=== PATIENT | female | born 1985 | race Caucasian/White ===

== ENCOUNTER → 2018-10-11 13:28 | Outpatient (CLI) | payer MEDICAID, SELFPAY ==
--- NOTE | 2018-10-11 13:36 | XR_ITS ---
XR chest 2V HISTORY: ITS.REASON: COUGH ORDERING PHYSICIAN: Patricia Cole PATIENT AGE: 32 years COMPARISON: None available FINDINGS: The cardiomediastinal silhouette and pulmonary vascularity are within normal limits. The lungs are clear without infiltrates, suspicious nodules, or pleural effusions. No acute bony abnormalities. IMPRESSION: Negative chest, no acute finding
== END ==
PROVIDERS: PCP Nurse Practitioner Family; Visit Provider Nurse Practitioner Family
DX: R07.89 Other chest pain (principal); R05 Cough
CPT/HCPCS: 71046

== ENCOUNTER → 2018-10-18 10:31 | Outpatient (CLI) | payer MEDICAID, SELFPAY ==
[2018-10-18 10:37] LABS: Adenovirus,PCR Not Detected (NotDetected); Bordetella Pertussis Not Detected (NotDetected); Chlamydophila Pneumoniae, PCR Not Detected (NotDetected); Coronavirus 229E Not Detected (NotDetected); Coronavirus NL63 Not Detected (NotDetected); Coronavirus OC43 Not Detected (NotDetected); Coronovirus HKU1,PCR Not Detected (NotDetected); Human Metapneumovirus Not Detected (NotDetected); Influenza A, PCR Not Detected (NotDetected); Influenza AH1, 2009 Not Detected (NotDetected); Influenza AH1, PCR Not Detected (NotDetected); Influenza AH3,PCR Not Detected (NotDetected); Influenza B, PCR Not Detected (NotDetected); Mycoplasma Pneumoniae, PCR Not Detected (NotDetected); Parainfluenza 1, PCR Not Detected (NotDetected); Parainfluenza 2, PCR Not Detected (NotDetected); Parainfluenza 3, PCR Not Detected (NotDetected); Parainfluenza 4, PCR Not Detected (NotDetected); Respiratory Syncytial Virus Not Detected (NotDetected); Rhinovirus/Enterovirus Not Detected (NotDetected)
--- NOTE | 2018-10-18 10:39 | XR_ITS ---
XR chest 2V HISTORY: ITS.REASON: COUGH,FEVER ORDERING PHYSICIAN: Patricia Cole PATIENT AGE: 33 years COMPARISON: 10/11/2018 FINDINGS: The cardiomediastinal silhouette and pulmonary vascularity are within normal limits. The lungs are clear without infiltrates, suspicious nodules, or pleural effusions. There is minimal upper thoracic curvature convex left No acute bony abnormalities. IMPRESSION: No change with no acute finding
== END ==
PROVIDERS: PCP Nurse Practitioner Family; Visit Provider Nurse Practitioner Family
DX: R05 Cough (principal); R50.9 Fever, unspecified
CPT/HCPCS: 71046; 87486; 87581; 87633; 87798

== ENCOUNTER → 2022-04-26 15:46 | Outpatient (CLI) | payer BC, SELFPAY ==
[2022-04-26 17:13] LABS: HCG,Quantitative 2018 mIU/ml (0-5.42)
== END ==
PROVIDERS: PCP Nurse Practitioner Family; Visit Provider Obstetrics & Gynecology
DX: Z34.90 Encounter for supervision of normal pregnancy, unspecified, unspecified trimester (principal)
CPT/HCPCS: 36415; 84702

== ENCOUNTER → 2022-04-28 15:44 | Outpatient (CLI) | payer BC, SELFPAY ==
[2022-04-28 17:53] LABS: HCG,Quantitative 4192 mIU/ml (0-5.42)
== END ==
PROVIDERS: PCP Family Medicine; Visit Provider Obstetrics & Gynecology
DX: Z34.90 Encounter for supervision of normal pregnancy, unspecified, unspecified trimester (principal)
CPT/HCPCS: 36415; 84702

== ENCOUNTER → 2022-05-10 12:51 | Outpatient (CLI) | payer BC, SELFPAY ==
--- NOTE | 2022-05-10 12:51 | US_ITS ---
FINAL REPORT CLINICAL HISTORY: Dates; early 6 w 4 d FINDINGS: PELVIC ULTRASOUND A single living intrauterine is present. Cardiac activity is confirmed at 126 beats per minute. Estimated gestational age is 6 weeks 4 days based on a crown-rump length of 6.68 mm. Otherwise evaluation of the uterus and cervix was not performed. Appropriate amount of fluid is present. The right ovary measures 3.4 x 2.3 x 3.5 cm. There is a 2.3 cm right ovarian cyst, likely corpus luteum. The left ovary measures 2.8 x 1.4 x 2.2 cm. Normal flow is identified to the ovaries. IMPRESSION: Single living intrauterine with an estimated gestational age of 6 weeks 4 days. Reviewed, Interpreted and Dictated by Olena Sinha MD Transcribed by Vin Goss Authenticated and [facility]
== END ==
PROVIDERS: PCP Family Medicine; Visit Provider Obstetrics & Gynecology
DX: Z34.90 Encounter for supervision of normal pregnancy, unspecified, unspecified trimester (principal)
CPT/HCPCS: 76801

== ENCOUNTER → 2022-05-18 12:54 | Outpatient (CLI) | payer BC, SELFPAY ==
[2022-05-18 13:19] LABS: Basophils # 0.1 K/mm3 (0-0.2); Basophils % 1.3 % (0.1-2.0); Eosinophils # 0.1 K/mm3 (0.0-0.4); Hematocrit 41.6 % (37.0-47.0); Hemoglobin 13.5 g/dL (12.2-16.2); Lymphocytes % 26.5 % (10-50); Mean Corpuscular HGB Conc 32.5 g/dL (31.8-35.4); Mean Corpuscular Hemoglobin 32.6 pg (27.0-31.2); Mean Corpuscular Volume 100.3 fl (81-99); Mean Platelet Volume 8.8 fl (7.4-10.4); Monocytes # 0.3 K/mm3 (0.1-1.0); Monocytes % 3.3 % (1.7-9.3); Neutrophils # 5.2 K/mm3 (1.8-7.8); Neutrophils % 67.9 % (37.0-80.0); Platelet Count 206 K/mm3 (142-424); Red Blood Count 4.15 M/mm3 (4.20-5.40); Red Cell Distribution Width 12.8 % (11.5-17.5); White Blood Count 7.6 K/mm3 (4.8-10.8)
[2022-05-19 06:14] LABS: HIV Screen 4th Generation wRfx Non Reactive (Non Reactive); Hepatitis B Surface Antigen Negative (Negative); Hepatitis C Antibody 0.1 s/co ratio (0.0-0.9)
[2022-05-19 11:25] LABS: Rapid Plasma Reagin Ab Titer Non Reactive (NonRea<1:1)
[2022-05-20 23:13] LABS: Neisseria gonorrhoeae, NAA Negative (Negative)
== END ==
PROVIDERS: PCP Family Medicine; Visit Provider Obstetrics & Gynecology
DX: Z34.90 Encounter for supervision of normal pregnancy, unspecified, unspecified trimester (principal)
CPT/HCPCS: 36415; 85025; 86592; 86703; 86762; 86850; 87340; 87380; 87491; 87591; G0432

== ENCOUNTER → 2022-08-12 13:16 | Outpatient (CLI) | payer BC, SELFPAY ==
--- NOTE | 2022-08-12 13:26 | US_ITS ---
FINAL REPORT CLINICAL HISTORY: 20 week anatomy scan FINDINGS: There is a single live intrauterine gestation. Presentation is variable but was breech at the end of the exam. The cervix is closed and measures 4.52 cm. Placenta is anterior, grade 1. movement is noted. Cardiac activity was noted with heart rate measured at 150 beats per minute. Three-vessel cord with satisfactory umbilical cord insertion. Four-chamber heart is noted. brain and ventricles are unremarkable. Chest and diaphragm are unremarkable. ABDOMEN: Both kidneys are unremarkable. Stomach is unremarkable. SPINE: No anomalies identified. Both arms and legs noted. AMNIOTIC FLUID: Appropriate amount. MEASUREMENTS: ULTRASOUND AGE: 20 weeks 4 days. GESTATION AGE: 20 weeks 0 days. ESTIMATED WEIGHT: 362 g GROWTH PERCENTILE: 77% LMP percentile BPD: 4.8 cm corresponding with 20 weeks 5 days. OFD: 6.4 cm corresponding with 21 weeks 2 days. HC: 17.8 cm corresponding with 20 weeks 3 days. AC: 15.7 cm corresponding with 20 weeks 6 days. FL: 3.3 cm corresponding with 20 weeks 2 days. CEREBELLUM: 2.1 cm corresponding with 21 weeks 2 days. HUMERUS: 3.1 cm corresponding with 20 weeks 2 days. HC/AC: 1.14 CI: 76% FL/BPD: 68% FL/AC: 21% IMPRESSION: Single living IUP with an ultrasound age of 20 weeks 4 days. No anomalies noted. Reviewed, Interpreted and Dictated by Christiano Barrientos III, MD Transcribed by Shelby Lozada Authenticated and [facility]
== END ==
PROVIDERS: PCP Nurse Practitioner Family; Visit Provider Obstetrics & Gynecology
DX: Z34.90 Encounter for supervision of normal pregnancy, unspecified, unspecified trimester (principal); Z3A.20 20 weeks gestation of pregnancy
CPT/HCPCS: 76811

== ENCOUNTER → 2022-09-17 08:00 | Outpatient (CLI) | payer BC, SELFPAY ==
[2022-09-17 08:45] LABS: Glucose,Fasting 84 mg/dl (74-100)
[2022-09-17 10:56] LABS: Glucose 1 Hour 115 mg/dL (74-100)
== END ==
PROVIDERS: PCP Nurse Practitioner Family; Visit Provider Obstetrics & Gynecology
DX: Z34.90 Encounter for supervision of normal pregnancy, unspecified, unspecified trimester (principal)
CPT/HCPCS: 36415; 82951

== ENCOUNTER 2022-10-07 14:28 | Outpatient (CLI) | payer BC, SELFPAY ==
[2022-10-07 15:57] VITALS: BP 143/72; PULSE 78; RESP 18; TEMP 36.4; O2SAT 98
== END 2022-10-07 16:11 | disposition home or self-care (01) ==
LOC: LAB 14:28 → INF 14:30 → LAB 14:31
PROVIDERS: PCP Nurse Practitioner Family; Visit Provider Obstetrics & Gynecology
DX: Z34.90 Encounter for supervision of normal pregnancy, unspecified, unspecified trimester (principal)
CPT/HCPCS: 36415; 96372; J2790

== ENCOUNTER → 2022-11-23 10:24 | Outpatient (CLI) | payer BC, SELFPAY ==
--- NOTE | 2022-11-23 10:24 | US_ITS ---
FINAL REPORT CLINICAL HISTORY: Growth JOSIE FINDINGS: There is a single live intrauterine gestation. Presentation is cephalic. The cervix is closed and measures 3.76 cm. Placenta is anterior grade 2-3. Cardiac activity is confirmed at 147 bpm. Fetus is active. No gross anomaly is identified. JOSIE: 17.3 cm MEASUREMENTS: ULTRASOUND AGE: 38 weeks 1 days. GESTATION AGE: 34 weeks 5 days. ESTIMATED WEIGHT: 3086 g GROWTH PERCENTILE: 96% LMP percentile BPD: 9.8 cm corresponding with 40 weeks 1 days. OFD: 12.1 cm HC: 34.5 cm corresponding with 40 weeks 0 days. AC: 32.5 cm corresponding with 36 weeks 3 days. FL: 6.9 cm corresponding with 35 weeks 5 days. HC/AC: 1.06 CI: 81% FL/BPD: 71% FL/AC: 21% BREATHIN/2 MOVEMENT: 2/2 TONE: 2/2 FLUID VOLUME: 2/2 BPP SCORE: 05/24 IMPRESSION: Single living IUP with an ultrasound age of 38 weeks 1 days. No gross anomaly identified. BPP SCORE: 05/24 Reviewed, Interpreted and Dictated by Roger Pulido MD Transcribed by Shelby Lozada Authenticated and [facility]
== END ==
PROVIDERS: PCP Nurse Practitioner Family; Visit Provider Obstetrics & Gynecology
DX: O09.529 Supervision of elderly multigravida, unspecified trimester (principal); O47.00 False labor before 37 completed weeks of gestation, unspecified trimester
CPT/HCPCS: 76816; 76819

== ENCOUNTER → 2022-11-30 23:22 | Outpatient (CLI) | payer BC, SELFPAY | PROVIDERS: PCP Nurse Practitioner Family; Visit Provider Obstetrics & Gynecology | DX: Z34.90 Encounter for supervision of normal pregnancy, unspecified, unspecified trimester (principal) | CPT/HCPCS: 86403 ==

== ENCOUNTER 2022-12-16 05:04 | Inpatient (IN) | payer BC, SELFPAY ==
[2022-12-16] VITALS (17 sets, daily range): BP systolic 96–138; BP diastolic 65–96; PULSE 77–154; RESP 16–19; TEMP 36.4–36.9; O2SAT 95–100; BMI 34.5
[2022-12-16 06:11] LABS: Coronavirus 19, PCR Not Detected (NotDetected); Influenza A, PCR Not Detected (NotDetected); Influenza B, PCR Not Detected (NotDetected)
[2022-12-16 06:11] LABS: Microscopic, Urine URINE MICROSCOPIC (MICROSCOPIC)
[2022-12-16 06:14] LABS: Basophils # 0.1 K/mm3 (0-0.2); Basophils % 0.7 % (0.1-2.0); Eosinophils # 0.1 K/mm3 (0.0-0.4); Eosinophils % 0.9 % (0.1-12.0); Hemoglobin 12.6 g/dL (12.2-16.2); Lymphocytes % 31.4 % (10-50); Mean Corpuscular HGB Conc 33.2 g/dL (31.8-35.4); Mean Corpuscular Hemoglobin 32.4 pg (27.0-31.2); Mean Corpuscular Volume 97.5 fl (81-99); Mean Platelet Volume 11.6 fl (7.4-10.4); Monocytes # 0.6 K/mm3 (0.1-1.0); Monocytes % 6.1 % (1.7-9.3); Neutrophils # 5.7 K/mm3 (1.8-7.8); Neutrophils % 60.8 % (37.0-80.0); Platelet Count 147 K/mm3 (142-424); White Blood Count 9.4 K/mm3 (4.8-10.8)
[2022-12-16 06:31] LABS: Appearance,Urine CLEAR (Clear); Bilirubin,Urine Negative (Negative); Blood, Urine Negative (Negative); Color,Urine YELLOW (Yellow); Glucose,Urine (UA) Negative (Negative); Ketones,Urine Negative (Negative); Leukocyte Esterase,Urine Negative (Negative); Nitrate,Urine Negative (Negative); Protein,Urine Negative (Negative); Specific Gravity, Urine 1.015 (1.005-1.030); Urobilinogen,Urine 0.2 EU/dl (0.2)
--- NOTE | 2022-12-16 07:09 | P.CONPHA_ITS ---
Pharmacy Intervention Comments: MEDICATION RECONCILIATION COMPLETED ON PATIENT USING LIST FROM COMPLIANCE ADMINISTRATOR OFFICE. -LILIAM SANTOS, NEDD
--- NOTE | 2022-12-16 07:09 | HMH.PHAINT1 ---
Pharmacy Intervention Comments: MEDICATION RECONCILIATION COMPLETED ON PATIENT USING LIST FROM MULTIFOCAL BUTTON GRINDER OFFICE. -LILIAM SANTOS, NEDD
[2022-12-16 07:51] LABS: Barbiturates Screen,Urine Negative ng/ml (<200); Benzodiazepines Screen,Urine Negative ng/ml (<200)
[2022-12-16 07:52] LABS: Amphetamine/Metha Screen,Urine Negative ng/ml (<1000)
[2022-12-16 07:53] LABS: Cannabinoid Screen,Urine Negative ng/ml (<50); Methadone Screen,Urine Negative ng/ml (<300)
[2022-12-16 07:54] LABS: Cocaine Screen,Urine Negative ng/ml (<300)
[2022-12-16 07:55] LABS: Opiate Screen,Urine Negative ng/ml (<300)
[2022-12-16 07:56] LABS: Phencyclidine Screen,Urine Negative ng/ml (<25)
--- NOTE | 2022-12-16 09:08 | EXP.HP ---
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 Medical History No significant past medical history Family History Other Diabetes History of high cholesterol Social History (Updated 12/16/22 @ 06:03 by Jayne Graff RN) Smoking Status: Never smoker alcohol intake: never substance use type: denies use current occupational status: employed Travel in the last 8 weeks: None household members: family housing: house do you feel safe at home: Yes victim of physical abuse: No victim of emotional abuse: No victim of sexual abuse: No Review of Systems Review of Systems Review of systems:: pertinent systems reviewed and negative unless documented below Constitutional Constitutional: Denies headache(s) Eyes Eyes: Denies blurry vision, Denies floaters and Denies spots in vision ENT Ears, Nose, Mouth, and Throat: Denies headache(s) *Gastrointestinal Gastrointestinal: Denies abdominal pain *Genitourinary Genitourinary: Denies abnormal vaginal bleeding *Neurologic Neurologic: Denies headache(s) and Denies other visual disturbances Meds Home Medications and Allergies Home Medications Medication Instructions Recorded Confirmed Type albuterol sulfate 90 mcg/actuation 1 puff inhalation Q6HP PRN 03/11/19 12/16/22 History aerosol inhaler (Ventolin HFA) Shortness Of Breath fluticasone propionate 50 1 spray intranasal DAILY allergies 07/01/22 12/16/22 History mcg/actuation nasal spray,suspension (Flonase Allergy Relief) prenat.vits,wilmer,[id number] 1 tab PO DAILY Supplement 07/01/22 12/16/22 History levocetirizine 5 mg tablet (Xyzal) 5 mg PO DAILY allergies 08/12/22 12/16/22 History omeprazole 20 mg capsule,delayed 20 mg PO DAILY GERD 11/04/22 12/16/22 History release New Prescriptions to Start Prescriptions: Allergies Allergy/AdvReac Type Severity Reaction Status Date / Time meclizine Allergy Intermediate Swelling Verified 12/14/22 11:19 of the Eye Penicillins Allergy Mild Verified 12/14/22 11:19 Exam Data for Last 24 hours Vital signs and Labs for Last 24 Hours: Temp Pulse Resp BP Pulse Ox 98.3 F 91 H 18 110/69 98 12/16/22 07:54 12/16/22 07:54 12/16/22 07:54 12/16/22 07:54 12/16/22 07:54 Laboratory Results - last 24 hr 12/16/22 05:15: Urine Color Yellow, Urine Appearance Clear, Urine pH 6.0, Ur Specific [place] 1.015, Urine Protein Negative, Urine Glucose (UA) Negative, Urine Ketones Negative, Urine Blood Negative, Urine Nitrate Negative, Urine Bilirubin Negative, Urine Urobilinogen 0.2, Ur Leukocyte Esterase Negative, Urine RBC None, Urine WBC 3-5, Ur Squamous Epith Cells 3-5, Urine Bacteria None 12/16/22 05:15: Urine Opiates Screen Negative, Urine Methadone Screen Negative, Ur Barbituates Screen Negative, Ur Phencyclidine Scrn Negative, Ur Amphetamines Screen Negative, U Benzodiazepines Scrn Negative, Urine Cocaine Screen Negative, U Marijuana (THC) Screen Negative 12/16/22 05:30: SARS-CoV-2 (PCR) Not detected, Influenza A Untype (PCR) Not detected, Influenza Type B (PCR) Not detected 12/16/22 05:40: WBC 9.4, RBC 3.90 L, Hgb 12.6, Hct 38.0, MCV 97.5, MCH 32.4 H, MCHC 33.2,
--- NOTE | 2022-12-16 13:46 | P.PN_ITS ---
[facility] Disclaimer: The information contained in this section may have been updated after the patient was seen, as this information can be updated by other users. Medical History No significant past medical history Family History Other Diabetes History of high cholesterol Social History (Updated 12/16/22 @ 06:03 by Jayne Graff RN) Smoking Status: Never smoker alcohol intake: never substance use type: denies use current occupational status: employed Travel in the last 8 weeks: None household members: family housing: house do you feel safe at home: Yes victim of physical abuse: No victim of emotional abuse: No victim of sexual abuse: No [facility] Anesthesia Checklist Patient Identification Patient Identification: Arm Band Structural Data Admitted From: Inpatient Planned Operative Procedure/s: Labor Epidural Consent for Planned Operative Procedure(s) Verified: Yes Verified Documents: Surgical Consent and History and Physical NPO Status Verified Time NPO: 00:00 Additional verifications Anesthesia Reactions: No Airway Assessment C-Spine Mobility Assessed: Yes TMJ Mobility Assessed: Yes Dentition: Good Dentition Neurological Assessment Level of Consciousness: Awake and Alert Anesthesia Plan Anesthesia Risk discussed: Yes Anesthesia Plan: Verified ASA Class: II Anesthesia Type: Epidural
--- NOTE | 2022-12-16 14:01 | EXP.LABOR.NO ---
Labor Note Subjective: Date: 12/16/22 Time: 14:01 regular contraction Comment:: Comfortable with epidural regular contractions in good pattern Objective: Contractions:: every 2-3 minutes Cervical Dilation:: 4 Effacement:: 70% Station: 0 Membranes: artificially ruptured Fetus: monitoring type:: Internal Assessment: All Active Problems (Updated 12/16/22 @ 09:17 by June Retana MD) 38 weeks gestation of (Acute) Gestational hypertension without significant proteinuria during in third trimester, antepartum (Acute) Large for gestational age fetus (Acute) Carrier of fragile X chromosome (Acute) Rh negative status during (Acute) AMA (advanced maternal age) multigravida 35+ (Acute) (Acute) Plan: Comment:: Continue pitocin augmentation Continuous monitoring Anticipate
--- NOTE | 2022-12-16 18:43 | PC.NURSE ---
Spoke with Falguni Fields RN, Joe Ervin, Injection Molding Supervisor and Vladimir Schultz CRNA to notify them of Dr. Retana's request for a non-emergent .
--- NOTE | 2022-12-16 19:11 | EXP.LABOR.NO ---
Labor Note Subjective: Date: 12/16/22 Time: 19:11 Comment:: regular contractions all day cervix is unchanged and vertex has increasing caput she will be taken to the OR for c section questions answered Assessment: All Active Problems (Updated 12/16/22 @ 09:17 by June Retana MD) 38 weeks gestation of (Acute) Gestational hypertension without significant proteinuria during in third trimester, antepartum (Acute) Large for gestational age fetus (Acute) Carrier of fragile X chromosome (Acute) Rh negative status during (Acute) AMA (advanced maternal age) multigravida 35+ (Acute) (Acute)
[2022-12-16 20:47] LABS: Hematocrit 27.8 % (37.0-47.0)
[2022-12-16 20:52] LABS: Hemoglobin 9.4 g/dL (12.2-16.2)
--- NOTE | 2022-12-16 21:59 | EXP.OP.NOTE ---
Date of procedure: 12/16/22 Pre-op Diagnosis:: 1. 38 0/7 2. Advanced Maternal Age 3. Gestational Hypertension 4. LGA Fetus 5. Failure to progress in labor Post-op Diagnosis:: Same Procedure performed:: Low Transverse C Section Surgeon:: June Retana MD QUANTITATIVE MANAGER:: Tomás Huffmankatt Anesthesia: MAC and epidural Estimated blood loss (mL): 2,500 Operative findings:: Male in vertex presentation, nuchal cord x 1 Uterine atony unresponsive to multiple medications Operative note:: The patient was taken to the OR and epidural anesthesia was confirmed adequate. She was prepped and draped in normal sterile fashion. A pfannenstiel skin incision was made with the scalpel and carried down to the fascia. The fascia was incised in the midline and sharply dissected off the rectus muscles. The muscles were in the midline and the peritoneum was entered sharply and extended bluntly. She was feeling more discomfort than expected, and IV medication was given to her by anesthesia, resulting in a MAC on top of the epidural. An Danie-O self retaining retractor was placed in the abdomen and a bladder flap was created. The uterus was incised in the lower uterine segment in a transverse fashion and extended bluntly. The was delivered in controlled fashion, without complication or shoulder dystocia. Nuchal cord x 1 was reduced at time of delivery. Brisk arterial bleeding from both upper and lower edges of uterine incision resulted in an excessive start to the estimated blood loss. Ring forcep clamps were applied to the incision edges at sites of bleeding but she continued to bleed steadily from the lower uterine segment, which was very friable. The was vigorous at and handed to awaiting pediatricians for evaluation after cord clamped and cut. Cord blood was collected and a cord segment was preserved. The placenta was manually extracted and noted to be intact. The uterus was repaired with 0-vicryl in a running/locked fashion, in 2 layers. Multiple figure of 8 stitches of 0-vicryl and #1 vicryl were placed below the incision because of continued active bleeding from this friable tissue. The uterus was also very boggy and not responding to the IV pitocin which was started after delivery of the placenta. 10units of pitocin was injected directly into the uterus on the field, with minimal response. 0.2mg Methergine was given IM, with minimal response. During this time pressure was being applied to the lower uterus but it continued to ooze. The drape was repositioned and 800mcg cytotec was given rectally by the circulating nurse. Once the drape was repositioned, the uterus was examined and was still boggy with atony. #1 vicryl was used to place a B-Blanco stitch around the uterus, and this was pulled tight for treatment of uterine atony. A second IV site was placed and transfusion of 2 units packed red cells was begun intra-operatively, and she was cross-matched for an additional 2 units. The lower uterine segment continued to ooze steadily, but the tissue was so friable that it was pulling through when sutures were placed for attempted hemostasis. Skyler, Surgicel and Gelfoam were packed onto this tissue in a fashion to tamponade the bleeding. A Omer-Mcintyre drain was placed (below the fascia) to monitor any continued bleeding. The fascia was closed with #1 vicryl in a running fashion. A 1cm incision was made in the left abdomen above the skin incision and the DANNA drain was taken out through this incision. The subcutaneous fat was closed with 2-0 vicryl in an interrupted fashion. The skin was closed with jerome. The DANNA drain was sutured in place with Nylon suture. Telfa/Tegaderm was applied over both incisions. TAP block was placed by anesthesia after conclusion of the case. Sponge, lap, needle and instrument counts were correct x 2. Estimated blood loss from canister and lap sponges was 2500, but quantitative blood loss will be calc
--- NOTE | 2022-12-16 22:21 | P.PNANES_ITS ---
[facility] Anesthesia Record Part I Anesthesia Record I Intake, IV Amount: 2,700 Estimated blood loss (mL): 2,500 Urine output (mL): 300 Blood Products used (#): PRBC's (2 units. See Anesthesia record for times/vital signs) Blood Pressure: 105/76 SaO2: 96 Pulse Rate: 140 Respiratory Rate: 16 Temperature: 98.2 F Patient is:: Drowsy and Stable Stable to PACU at:: 22:05
--- NOTE | 2022-12-16 23:26 | SUR.OPER ---
194- viable infant male born at this time 1949- 20g placed in pt's RFA per QBL protocol 1999- 2 units of PRBC's placed on hold per MD Retana 2002- Methergine 0.2mg IM given at this time 2025- 800mcg of cytotec given rectally per this RN and CURRY Cantu 2026- stat H/H ordered by lab (resulted at 2039 9.4) 2107- Emergent blood given per this RN and RFharoon SLASH TRIMMER 2127- 1st unit of blood ended at this time 2129- 2nd unit of emergent blood given per this RN and RFonesimoback SLASH TRIMMER 2154- 2nd unit ended at this time 2237- QBL total given to MD Retana, per R Marion, TASHA 2240- Called report to CURRY Cantu in OB 2245- Pt brought to room 277 in stable condition and left in the care of Sandy Graff RN
[2022-12-17] VITALS (24 sets, daily range): BP systolic 101–155; BP diastolic 55–85; PULSE 90–150; RESP 15–17; TEMP 36.3–37.1; O2SAT 95–100
[2022-12-17 07:58] LABS: Hematocrit 38.6 % (37.0-47.0)
--- NOTE | 2022-12-17 09:15 | P.PNANES_ITS ---
[facility] Anesthesia Record Part II Anesthesia Record Part II Discharge Time: 22:45 (12/16/22) Destination: Obstetric PACU nurse assessment reviewed?: Yes Patient Condition:: Good Anesthesia Complications:: None Swallowing reflex intact?: Yes Cyanosis?: No Blood Pressure: 112/79 Pulse Rate: 150 Temperature: 98.2 F Mental Status: Alert & Oriented Pain level:: 0 Nausea and/or vomitting:: None Intake, IV Amount: 0 Comments:: Pt tachycardic but normotensive in PACU. Pale in color. QBL at this point was ~3500. Discussed with Dr. Retana about infusing more PRBC
--- NOTE | 2022-12-17 12:52 | EXP.ACUTE.PN ---
Subjective *Date: 12/17/22 *Time: 12:52 Interval history: POD#1 LTCS Procedure complicated by hemorrhage, with QBL 3500cc She was transfused 4 units PRBCS based on EBL and clinical findings DANNA drain was placed below the fascia because of concern for persistent oozing from lower uterine segment; dhillon catheter was left in place and she was kept NPO overnight Today she looks very well and vital signs have been stable Hgb this morning was 13, but probably has not equilibrated yet Lochia has been small Urine output has been 80-90cc/hour and DANNA drain was 30cc for the past 8 hours She has only been taking tylenol and ibuprofen for pain, but has oxycodone ordered PRN She is feeling hungry and ready to have some food Medical Exam Vital signs and Labs for Last 24 Hours: Vital Signs Temp Pulse Pulse Resp BP BP Pulse Ox 12/17/22 16:00 98.3 F 90 16 119/76 99 12/17/22 08:30 98.2 F 106 H 16 114/57 L 98 12/17/22 11:51 98.3 F 106 H 16 118/71 98 12/16/22 21:55 97.8 F 138 H 17 110/76 99 12/16/22 21:30 97.5 F L 139 H 19 104/70 L 100 12/16/22 21:28 97.6 F 135 H 18 100/65 L 99 12/16/22 21:08 98.1 F 141 H 19 96/65 L 98 12/17/22 06:55 98.2 F 110 H 17 119/67 99 12/17/22 05:55 98.4 F 113 H 17 122/58 L 98 12/17/22 05:05 98.2 F 111 H 15 116/65 98 12/17/22 04:50 98.2 F 110 H 15 116/67 98 12/17/22 04:35 97.7 F 119 H 16 116/55 L 98 12/17/22 04:20 98.4 F 128 H 16 115/57 L 99 12/17/22 04:15 98.2 F 138 H 16 119/58 L 100 12/17/22 04:10 98.2 F 134 H 17 118/85 98 12/17/22 04:05 98.2 F 139 H 17 121/60 99 12/17/22 04:00 98.2 F 133 H 17 155/83 H 99 12/17/22 03:42 97.4 F L 119 H 17 110/64 98 12/17/22 02:42 98.6 F 134 H 15 112/78 96 12/17/22 01:42 98.8 F 121 H 15 110/68 97 12/17/22 01:27 98.4 F 135 H 17 111/62 98 12/17/22 01:12 98.7 F 140 H 17 108/70 L 99 12/17/22 00:57 97.9 F 126 H 17 117/66 95 12/17/22 00:52 97.9 F 130 H 17 101/78 L 96 12/17/22 00:47 98.4 F 137 H 17 110/75 96 12/17/22 00:42 98.7 F 124 H 15 107/68 L 97 12/17/22 00:40 98.7 F 129 H 15 104/63 L 98 12/16/22 22:45 150 H 18 112/79 99 12/16/22 22:40 144 H 16 103/87 L 95 12/16/22 22:35 143 H 16 113/93 H 95 12/16/22 22:30 139 H 16 116/73 95 12/16/22 22:25 139 H 16 138/71 95 12/16/22 22:20 148 H 17 127/83 97 12/16/22 22:15 154 H 18 112/96 H 96 12/16/22 22:10 139 H 17 105/76 L 97 12/16/22 22:05 98.2 F 138 H 16 114/85 99 12/17/22 09:19 98.2 F 150 H 112/79 12/16/22 22:22 98.2 F 140 H 16 105/76 L Intake and Output 12/17/22 12/17/22 12/17/22 03:59 11:59 19:59 Intake Total 2997 / 3297 300 / 3297 Output Total 60 / 945 885 / 945 630 / 630 Balance 2937 / 2352 -585 / 2352 -630 / -630 Intake: Intake, Total IV Amount 2700 / 2700 0 / 2700 Intake (Blood Product) Amt 297 / 597 300 / 597 Red Blood Cells Unit 297 / 297 [id number] Red Blood Cells Unit 300 / 300 [id number] Output: Output, Urine Amount 600 / 600 Output, Urine Amount (Catheter) 750 / 750 Dhillon 750 / 750 Output, Drainage Amount 60 / 195 135 / 195 30 / 30 Abdomen 60 / 195 135 / 195 30 / 30 Laboratory Results - last 24 hr 12/16/22 05:40: Blood Type O Negative, Antibody Screen Negative, Crossmatch (AHG) See Detail 12/16/22 20:40: Hgb 9.4 L D, Hct 27.8 L 12/17/22 06:12: Screen Negative, Baby's Rh Status Positive, Rhogam Infusion Rhogam release 12/17/22 07:25: Hgb 13.0 D, Hct 38.6 I & O for Labs for Last 24 Hours: Intake & Output 12/15/22 12/16/22 12/17/22 12/18/22 11:59 11:59 11:59 11:59 Intake Total 3297 / 3297 Output Total 945 / 945 630 / 630 Balance 2352 / 2352 -630 / -630 Weight 214 lb Comment:: No acute distress Comment:: breathing unlabored Comm
[2022-12-18 07:50] LABS: Basophils % 0.3 % (0.1-2.0); Eosinophils # 0.1 K/mm3 (0.0-0.4); Eosinophils % 0.4 % (0.1-12.0); Hematocrit 30.5 % (37.0-47.0); Lymphocytes # 1.8 K/mm3 (0.7-4.5); Lymphocytes % 11.5 % (10-50); Mean Corpuscular HGB Conc 34.1 g/dL (31.8-35.4); Mean Corpuscular Hemoglobin 30.7 pg (27.0-31.2); Mean Platelet Volume 10.6 fl (7.4-10.4); Monocytes # 0.7 K/mm3 (0.1-1.0); Monocytes % 4.5 % (1.7-9.3); Neutrophils % 83.4 % (37.0-80.0); Platelet Count 118 K/mm3 (142-424); Red Blood Count 3.39 M/mm3 (4.20-5.40); Red Cell Distribution Width 16.2 % (11.5-17.5); White Blood Count 15.6 K/mm3 (4.8-10.8)
[2022-12-18 08:02] LABS: MANUAL DIFFERENTIAL MANUAL DIFFERENTIAL (MANUAL DIFF)
[2022-12-18 08:22] VITALS: BP 135/69; PULSE 100; RESP 18; TEMP 36.9; O2SAT 97
--- NOTE | 2022-12-18 09:18 | EXP.ACUTE.PN ---
Subjective *Date: 12/18/22 *Time: 09:18 Interval history: She is doing well this morning. She is eating and drinking and ambulating. She is bottlefeeding. Her lochia is normal. Her hematocrit is stable. Medical Exam Vital signs and Labs for Last 24 Hours: Vital Signs Temp Pulse Pulse Resp BP BP Pulse Ox 12/17/22 16:00 98.3 F 90 16 119/76 99 12/17/22 11:51 98.3 F 106 H 16 118/71 98 12/17/22 09:19 98.2 F 150 H 112/79 Intake and Output 12/17/22 12/18/22 12/18/22 19:59 03:59 11:59 Output Total 755 / 5 600 / 5 670 / 2024 Balance -75 / -2024 - / - Output: Output, Urine Amount 700 / 1900 600 / 1900 600 / 1900 Output, Drainage Amount 55 / 125 70 / 125 Abdomen 55 / 125 70 / 125 Other: Number of Voids 1 2 Laboratory Results - last 24 hr 12/17/22 06:12: Screen Negative, Baby's Rh Status Positive, Rhogam Infusion Rhogam release 12/18/22 07:25: WBC 15.6 H D, RBC 3.39 L, Hct 30.5 L, MCV 90.0, MCH 30.7, MCHC 34.1, RDW 16.2, Plt Count 118 L, MPV 10.6 H, Neut % (Auto) 83.4 H, Lymph % (Auto) 11.5, [place] % (Auto) 4.5, Eos % (Auto) 0.4, Baso % (Auto) 0.3, Neut # (Auto) 13.0 H, Lymph # (Auto) 1.8, [place] # (Auto) 0.7, Eos # (Auto) 0.1, Baso # (Auto) 0.0 I & O for Labs for Last 24 Hours: Intake & Output 12/15/22 12/16/22 12/17/22 12/18/22 11:59 11:59 11:59 11:59 Intake Total 3297 / 3297 Output Total 945 / 945 2024 Balance 2352 / 2352 -2024 / -2024 Weight 214 lb Head: Present normocephalic ENT: Present normal exam Neck: Present normal inspection Respiratory: Present normal respiratory effort; Absent accessory muscle use Assessment and Plan *Assessment and plan (1) Uterine atony: Status: Acute Category: Medical Code(s): O62.2 - Other uterine inertia (2) hemorrhage: Status: Acute Category: Medical Code(s): O72.1 - Other immediate hemorrhage (3) Delivered by section: Status: Acute Category: Medical Code(s): Z38.01 - Single liveborn , delivered by (4) Gestational hypertension without significant proteinuria during in third trimester, antepartum: Status: Acute Category: Medical Code(s): O13.3 - Gestational [-induced] hypertension without significant proteinuria, third trimester (5) Rh negative status during : Problem Comment: [place] 10/07/22 Status: Acute Category: Medical Code(s): O26.899 - Other specified related conditions, unspecified trimester; Z67.91 - Unspecified blood type, Rh negative Plan She is doing well this morning. Her blood pressure is normalized. She is eating and drinking. She is voiding well. She has not had a bowel movement yet. She is bottlefeeding. We will plan to keep her for another 48 hours.
[2022-12-18 09:19] LABS: Hemoglobin 10.4 g/dL (12.2-16.2)
[2022-12-18 10:17] LABS: Anisocytosis 1+; Lymphocytes % 16 % (10-50); Monocytes % 4 % (2-9); Neutrophils % 80 % (42-76); Platelet Estimate Normal; Total Cells Counted 100
[2022-12-18 17:07] VITALS: BP 134/70; PULSE 92; RESP 17; TEMP 37.4; O2SAT 98
[2022-12-18 18:10] VITALS: TEMP 37
--- NOTE | 2022-12-19 07:11 | P.PN_ITS ---
Subjective *Date: 12/19/22 *Time: 07:11 Interval history: She continues to do well. She is eating and drinking and ambulating. She is breast-feeding as well as bottlefeeding. Her lochia is normal. Medical Exam Vital signs and Labs for Last 24 Hours: Vital Signs Temp Pulse Resp BP Pulse Ox 12/18/22 18:10 98.6 F 12/18/22 17:07 99.4 F 92 H 17 134/70 98 12/18/22 08:22 98.5 F 100 H 18 135/69 97 Intake and Output 12/18/22 12/19/22 12/19/22 19:59 03:59 11:59 Output Total 60 / 60 Balance - / -60 Output: Output, Drainage Amount 60 / 60 Abdomen 60 / 60 Laboratory Results - last 24 hr 12/18/22 07:25: Screen Cancelled, Baby's Rh Status Cancelled, Rhogam Infusion Cancelled 12/18/22 07:25: WBC 15.6 H D, RBC 3.39 L, Hgb 10.4 L D, Hct 30.5 L, MCV 90.0, MCH 30.7, MCHC 34.1, RDW 16.2, Plt Count 118 L, MPV 10.6 H, Neut % (Auto) 83.4 H , Lymph % (Auto) 11.5, [place] % (Auto) 4.5, Eos % (Auto) 0.4, Baso % (Auto) 0.3, Neut # (Auto) 13.0 H, Lymph # (Auto) 1.8, [place] # (Auto) 0.7, Eos # (Auto) 0.1, Baso # (Auto) 0.0, Total Counted 100, Neutrophils % (Manual) 80 H, Lymphocytes % (Manual) 16, Monocytes % (Manual) 4, Platelet Estimate Normal, RBC Morphology Not Reportable, Anisocytosis 1+ I & O for Labs for Last 24 Hours: Intake & Output 12/16/22 12/17/22 12/18/22 12/19/22 11:59 11:59 11:59 11:59 Intake Total 3297 / 3297 Output Total 945 / 945 2024 / 2024 60 / 60 Balance 2352 / 2352 -2024 / -2024 -60 / -60 Weight 214 lb Head: Present atraumatic Neck: Present normal inspection Respiratory: Present normal respiratory effort; Absent accessory muscle use Assessment and Plan *Assessment and plan (1) Uterine atony: Status: Acute Category: Medical Code(s): O62.2 - Other uterine inertia (2) hemorrhage: Status: Acute Category: Medical Code(s): O72.1 - Other immediate hemorrhage (3) Delivered by section: Status: Acute Category: Medical Code(s): Z38.01 - Single liveborn infant, delivered by (4) 38 weeks gestation of : Status: Acute Category: Medical Code(s): Z3A.38 - 38 weeks gestation of (5) Gestational hypertension without significant proteinuria during in third trimester, antepartum: Status: Acute Category: Medical Code(s): O13.3 - Gestational [-induced] hypertension without significant proteinuria, third trimester Plan She is doing well today. We will plan to send her home tomorrow.
[2022-12-19 10:01] VITALS: BP 122/57; PULSE 77; RESP 17; TEMP 36.4; O2SAT 96
[2022-12-19 16:03] VITALS: BP 122/70; PULSE 82; RESP 18; TEMP 37.1; O2SAT 100
[2022-12-19 19:45] VITALS: BP 141/64; PULSE 89; RESP 20; TEMP 37.2; O2SAT 100
--- NOTE | 2022-12-20 11:40 | EXP.DC.SUM ---
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 + heterozygote Fragile X mutation and LGA infant Ultrasound at 34 weeks gave EFW in 96% Subsequent genetic testing indicated low risk for Fragile X mutation Maternal Rhogam administration given 10/07/22 GBS negative Hospital Course Hospital Course Hospital Course: Delivery complicated by atony and significant hemorrhage She was transfused 4 units packed red cells, with Hgb settling at 10.4 following transfusion DANNA drain was placed at time of surgery due to concerns about potential continued bleeding, but drain output was appropriate and no additional surgical intervention was necessary She is discharged home on POD #4 in stable condition Skin jerome removed prior to discharge She will f/u in office in 2 weeks Exam Data for Last 24 hours Vital signs and Labs for Last 24 Hours: Temp Pulse Resp BP Pulse Ox 98.9 F 89 20 141/64 H 100 12/19/22 19:45 12/19/22 19:45 12/19/22 19:45 12/19/22 19:45 12/19/22 19:45 I & O for Last 24 hours: Intake & Output 12/17/22 12/18/22 12/19/22 12/20/22 11:59 11:59 11:59 11:59 Intake Total 3297 / 3297 Output Total 945 / 945 2024 110 / 110 60 / 60 Balance 2352 / 2352 -2024 / -2024 -110 / -110 -60 / -60 Constitutional Constitutional: no acute distress *Routine HEENT Exam Head: Present normocephalic Eye: Absent conjunctival icterus or scleral injection ENT: Present mucous membranes moist *Routine Neck Exam Neck: Present supple *Routine Respiratory Exam Respiratory: Present CTA bilaterally *Routine Cardiovascular Exam Cardiovascular: Present RRR *Routine Abdominal Exam Abdominal: Present soft; Absent tenderness or distended *Routine Rectal Exam Patient deferred: visual exam and digital exam *Routine Exam Patient deferred: external exam Comments: Fundus firm below umbilicus *Routine Extremities Exam Extremities: Present edema *Routine Skin Exam Skin: Present intact and dry Comments: Incision intact without erythema or purulent drainage *Routine Neurological Exam Neurological: Present alert and oriented X3 Routine Psychiatric Exam Psychiatric: Present normal affect; Absent depressed DS: Diagnosis Discharge Diagnosis (1) Delivered by section: Status: Acute (2) Uterine atony: Status: Acute (3) hemorrhage: Status: Acute (4) 38 weeks gestation of : Status: Acute (5) Gestational hypertension without significant proteinuria during in third trimester, antepartum: Status: Acute Meds Home Medications and Allergies Home Medications Medication Instructions Recorded Confirmed Type albuterol sulfate 90 mcg/actuation 1 puff inhalation Q6HP PRN 03/11/19 12/16/22 History aerosol inhaler (Ventolin HFA) Shortness Of Breath fluticasone propionate 50 1 spray intranasal DAILY allergies 07/01/22 12/16/22 History mcg/actuation nasal spray,suspension (Flonase Allergy Relief) prenat.vits,wilmer,[id number] 1 tab PO DAILY Supplement 07/01/22 12/16/22 History levocetirizine 5 mg tablet (Xyzal) 5 mg PO DAILY allergies 08/12/22 12/16/22 History omeprazole 20 mg capsule,delayed 20 mg PO DAILY GERD 11/04/22 12/16/22 History release ibuprofen 400 mg tablet 800 mg PO Q6HP PRN Mild To 12/20/22 Rx Moderate Pain #40 tabs oxycodone 5 mg tablet 10 mg PO Q4HP PRN Moderate To 12/20/22 Rx Severe Pain #24 tabs New Prescriptions to Start Prescriptions: June Vasquez oxycodone June Retana Allergies Allergy/AdvReac Type Severity Reaction Status Date / Time meclizine Allergy Intermediate Swelling Verified 12/14/22 11:19 of the Eye
== END 2022-12-20 15:10 | disposition home or self-care (01) | DRG 788 ==
PROVIDERS: Admitting Provider Obstetrics & Gynecology; Visit Provider Obstetrics & Gynecology
PROC: 10D00Z1 Extraction of Products of Conception, Low, Open Approach (ICD-10-PCS; CPT 59514; principal; 2022-12-16 19:00)
DX: O13.4 Gestational [pregnancy-induced] hypertension without significant proteinuria, complicating childbirth (principal); Z37.0 Single live birth; O36.63X0 Maternal care for excessive fetal growth, third trimester, not applicable or unspecified; O62.0 Primary inadequate contractions; Z3A.38 38 weeks gestation of pregnancy; O72.1 Other immediate postpartum hemorrhage; O69.81X0 Labor and delivery complicated by cord around neck, without compression, not applicable or unspecified
CPT/HCPCS: 59514; 36415; 59025; 80305; 81001; 85007; 85014; 85018; 85025; 85461; 86850; 94761; C1758; C9290; C9803; G0283; J2405; J2790; P9016; U0003; U0005

== ENCOUNTER 2024-11-22 15:50 | Outpatient (CLI) | payer BC, SELFPAY ==
[2024-11-22 17:02] LABS: HCG,Quantitative 199 mIU/ml (0-5.42)
[2024-11-23 12:17] LABS: Progesterone 23.3 ng/mL (.)
== END 2024-11-22 23:59 | disposition home or self-care (01) ==
PROVIDERS: PCP Nurse Practitioner; Visit Provider Obstetrics & Gynecology
DX: Z32.01 Encounter for pregnancy test, result positive (principal)
CPT/HCPCS: 36415; 84144; 84702

== ENCOUNTER 2024-11-26 15:58 | Outpatient (CLI) | payer BC, SELFPAY ==
[2024-11-26 18:34] LABS: HCG,Quantitative 1182 mIU/ml (0-5.42)
== END 2024-11-26 23:59 | disposition home or self-care (01) ==
LOC: LAB 15:59
PROVIDERS: PCP Nurse Practitioner; Visit Provider Obstetrics & Gynecology
DX: Z34.90 Encounter for supervision of normal pregnancy, unspecified, unspecified trimester (principal)
CPT/HCPCS: 36415; 84702

== ENCOUNTER 2024-12-20 15:18 | Outpatient (CLI) | payer BC, SELFPAY ==
[2024-12-21 21:14] LABS: Neisseria gonorrhoeae, NAA Negative (Negative)
== END 2024-12-20 23:59 | disposition home or self-care (01) ==
LOC: LAB.DROPOF 12-24 15:19
PROVIDERS: PCP Nurse Practitioner; Visit Provider Obstetrics & Gynecology
DX: Z34.01 Encounter for supervision of normal first pregnancy, first trimester (principal)
CPT/HCPCS: 87491; 87591

== ENCOUNTER 2024-12-24 15:58 | Outpatient (CLI) | payer BC, SELFPAY ==
--- NOTE | 2024-12-24 15:59 | US_ITS ---
PROCEDURE: US OB <= 14 WEEKS FETUS CLINICAL INDICATION: Dates/Confimation of COMPARISON: No exams were available for comparison FINDINGS: Transvaginal sonographic images of the pelvis were obtained. The uterus is axial and midline. From her last menstrual period she is 9weeks 2days. An intrauterine gestational sac is present with a pole with a crown-rump length of 1.68cm This correlates to a gestational age of 8weeks 1day. MINAL 08/04/2025 heart tones are present with an FHR of 179bpm. Yolk sac is noted. The yolk sac measures 5.0mm. The right ovary is seen and appears normal. The left ovary is seen and appears normal. There is no fluid in the cul-de-sac. IMPRESSION: 1. Viable embryo within the uterine cavity. Heart rate activity is seen. 2. The embryo measures 8 weeks and 1 day and her dates should be revised to reflect this. The revised MINAL will be 08/04/2025. 3. Both ovaries are seen and appear normal. 4. No fluid in the cul-de-sac. Dictated by: Eddie Peralta MD 12/24/2024 16:34 Eddie Peralta MD in OV 12/24/2024 16:34
[2024-12-24 16:47] LABS: Basophils % 0.2 % (0.1-2.0); Eosinophils % 0.2 % (0.1-12.0); Hemoglobin 13.3 g/dL (12.2-16.2); Lymphocytes # 2.3 K/mm3 (0.7-4.5); Lymphocytes % 21.1 % (10-50); Mean Corpuscular HGB Conc 34.1 g/dL (31.8-35.4); Mean Corpuscular Volume 93.8 fl (81-99); Mean Platelet Volume 10.7 fl (7.4-10.4); Monocytes # 0.6 K/mm3 (0.1-1.0); Monocytes % 5.7 % (1.7-9.3); Neutrophils # 7.9 K/mm3 (1.8-7.8); Neutrophils % 72.6 % (37.0-80.0); Platelet Count 215 K/mm3 (142-424); Red Blood Count 4.16 M/mm3 (4.20-5.40); Red Cell Distribution Width 11.8 % (11.5-17.5); White Blood Count 10.9 K/mm3 (4.8-10.8)
[2024-12-24 18:21] LABS: HIV Combo NEGATIVE (Negative)
[2024-12-24 18:27] LABS: Hepatitis C Ab Qual. W/ RFX NEGATIVE (Negative)
[2024-12-25 23:51] LABS: RPR W/RFX Titers Nonreactive (Nonreactive)
[2024-12-26 10:39] LABS: Hepatitis B Surface Antigen Negative (Negative); Rubella Antibodies, IgG 3.21 index (Immune >0.99)
== END 2024-12-24 23:59 | disposition home or self-care (01) ==
PROVIDERS: PCP Nurse Practitioner; Visit Provider Obstetrics & Gynecology
DX: Z36.87 Encounter for antenatal screening for uncertain dates (principal); Z3A.08 8 weeks gestation of pregnancy
CPT/HCPCS: 36415; 76801; 85025; 86592; 86762; 86803; 86850; 87340; 87389

== ENCOUNTER 2025-03-18 13:55 | Outpatient (CLI) | payer BC, SELFPAY ==
--- NOTE | 2025-03-18 14:00 | US_ITS ---
PROCEDURE: US OB /MATERNAL DETAIL CLINICAL INDICATION: Schedule 20 week Anatomy scan in 4wks COMPARISON: No exams were available for comparison FINDINGS: Transabdominal sonographic images of the pelvis were obtained. From her established due date she is 20 weeks 1 day. Single viable intrauterine gestation. Breech position. Placenta: Posteriorplacenta grade 1. There is an average amount of fluid. The cervix appears satisfactory. Closed and measuring 4.35 cm in length. Complete survey performed and was unremarkable on the submitted images as in PACS. No discrete anomalies identified on survey imaging by technologist. Active fetus. Three-vessel cord with satisfactory umbilical cord insertion. 4- chamber heart noted. Situs, aortic arch, LVOT, RVOT, three-vessel view appear normal. There is a small intracardiac echogenic foci in the left ventricle. Survey of brain & ventricles Unremarkable. Cerebellum, thalamus, choroid plexus, cisterna magna appear normal. Face and neck survey unremarkable. Profile, nasion, lips and nose appeared normal. Diaphragm and chest views unremarkable. Abdomen: Both kidneys noted and unremarkable. Stomach and bladder noted and satisfactory. Spine: Survey of the spine satisfactory with no anomalies identified nor imaged. Cervical, thoracic, lower spine appear normal. Both arms and legs noted. Amniotic Fluid: Adequate. MVP 4.73 cm Measurements: Average ultrasound age 20weeks 6days. Estimated due date by ultrasound age 1007/30/2025. Estimated weight 374g BPD = 21weeks 0 days HC = 20weeks 4days AC = 21weeks 0 days FL = 20weeks 5days Growth Percentile= 79 Heart Rate = 139bpm Cerebellum = 21weeks 1day Humerus = 21weeks 6days HC/AC is 1.15 FL/BPD is 0.69 FL/AC is 0.22 IMPRESSION: 1. Viable fetus in the breech presentation with a posterior placenta grade 1. 2. The fluid is within normal limits with an MVP 4.73 cm. 3. Anatomical scan appears normal. 4. There is an intracardiac echogenic foci within the left ventricle and suggest follow-up at 28 weeks. 5. biometry is consistent with the dates. Dictated by: Eddie Peralta MD 03/18/2025 15:42 Eddie Peralta MD in OV 03/18/2025 15:42
== END 2025-03-18 23:59 | disposition home or self-care (01) ==
LOC: RAD 13:56
PROVIDERS: PCP Nurse Practitioner; Visit Provider Obstetrics & Gynecology
DX: O09.512 Supervision of elderly primigravida, second trimester (principal); O32.1XX0 Maternal care for breech presentation, not applicable or unspecified; O28.3 Abnormal ultrasonic finding on antenatal screening of mother; Z3A.20 20 weeks gestation of pregnancy
CPT/HCPCS: 76811

== ENCOUNTER 2025-05-03 14:33 | Outpatient (CLI) | payer BC, SELFPAY ==
--- OUTSIDE RECORDS SUMMARY | 2022-12-20 05:11 | XMS_ITS | Continuity of Care Document ---
Author Organization [facility] Address [address] [place] [address] Phone Care Team Providers Care Glue Mill Operator Name Role Phone Rodolfo MSN, BACK GRINDER, Shivani Unavailable Unavai lable Allergies, Adverse Reactions, Alerts Substance Reaction Status Criticality PENICILLIN Active No Information Medications Medication Instructions Dosage Effective Dates (start - stop) Status Comments meclizine 25 mg tablet take 1 tablet by oral route 3 times every day as needed 25 MG - Active Bactrim DS 800 mg-160 mg tablet take 1 tablet by oral route every 12 hours 1.00 tablet - Active Flonase Allergy Relief 50 mcg/actuation nasal spray,suspension spray 1 - 2 spray by intranasal route every day in each nostril as needed 50-100 MCG - Active Advance Directives Directive Yes / No Effective Date File Name No Information Encounters Encounter Description Practice Location Reason(s) For Visit Diagnoses Date Provider [facility], [address] [place] [address], [facility], tel:[phone] [facility] [address] No Information Dec-0 3 Rodolfo Parrish[address] [place], [place], [id number] , . tel:[phone] [facility], [address] [place] [address], [facility], tel:[phone] [facility] [place] ear pain (chief complaint) Encounter for screening for depressionEncounter for screening examination for other mental health and behavioral disordersOtitis media in diseases classified elsewhere, right earEncounter for screening, unspecified Rodolfo Parrish. [address], [place], [id number] , [place]. tel:[phone] Family History Family Member Type Diagnosis Age At Onset Daughter Problem Alive and well Paternal grandmother Problem RECEIVED [place] FOR COLON CANCER AND IS NOW CANCER FREE AND DOING WELL. Paternal grandmother Problem Alive and well Father Problem FATHERS FAMILY HAS A HX OF H EART ISSUES Brother Problem Alive and well Maternal grandmother Problem Alive and well Father Problem Diabetes mellitus Maternal grandfather Problem Alive and well Paternal grandfather Problem PASSED DUE TO COMPLICATIONS WITH COPD-CHRONIC SMOKER Mother Problem Alive and well Father Problem hypertension Brother Problem Alive and well Maternal grandmother Problem stroke Son Problem Alive and well Maternal grandfather Problem stroke Father Problem Alive and well Paternal grandmother Problem cancer of colon Immunizations Vaccine Date Status Comments COVID-19 Vector-NR (JSN) administered Magdalena rce: Other Registry Payers Payer name Insurance type Covered republican ID Jason marie(julienne [facility] [id number] Social History Type Description Quantity Date Captured Comments Alcohol Use Details Unknown Caffeine Use Details Unknown Tobacco Use Status No Information Smoking Status No Information Sex Female Sexual Orientation Straight or heterosexual Jun Gender Identity Female Chief Complaint And Reason For Visit No Information History Of Present Illness Encounter Date Complaint History Of Prese nt Illness ear pain Onset: gradual. Severity level is mild-moderate. Duration: 3 Days. The states the ear pain is in the right ear. The problem is worse. Symptom is aggravated by lying down. Relieving factors include decongestants. Associated symptoms include congestion (nasal), dizziness, ear popping, ear pressure and fullness in ears. Pertinent negatives include bleeding from ear(s), drainage (clear) and drainage (purulent). Additional information: 13 weeks 4 days . Instructions Date Instruction Additional Infor mation Use flonase 1-2 spra ys in each nare dailyUse meclazine for dizziness prn- start with 12.5 mg every 8 hrs, but may use 25 mg if necessary.IF not improving in 2 days, may take antibiotics. If started, take until complete. RTC if not improving as expected. Related to Otitis media in diseases classified elsewhere, right ear Assessments Type Assessment Date No Information
[2025-05-03 16:30] LABS: Glucose 1 Hour 148 mg/dL (74-100)
== END 2025-05-03 23:59 | disposition home or self-care (01) ==
LOC: LAB 14:34
PROVIDERS: PCP Nurse Practitioner; Visit Provider Obstetrics & Gynecology
DX: Z87.59 Personal history of other complications of pregnancy, childbirth and the puerperium (principal)
CPT/HCPCS: 36415; 82947

== ENCOUNTER 2025-05-13 14:32 | Outpatient (CLI) | payer BC, SELFPAY ==
[2025-05-13 15:04] LABS: Hematocrit 33.8 % (37.0-47.0); Hemoglobin 11.6 g/dL (12.2-16.2); Immature Granulocytes % 0.2 %; Mean Corpuscular HGB Conc 34.3 g/dL (31.8-35.4); Mean Corpuscular Hemoglobin 31.9 pg (27.0-31.2); Mean Corpuscular Volume 92.9 fl (81-99); Nucleated Red Blood Cells % 0 %; Platelet Count 157 K/mm3 (142-424); Red Blood Count 3.64 M/mm3 (4.20-5.40); Red Cell Distribution Width-SD 43.0 fL; White Blood Count 9.0 K/mm3 (4.8-10.8)
[2025-05-13] MEDS: RHO(D) IMMUNE GLOBULIN 1,500 UNIT (300MCG) SYRINGE 300 MCG IM (15:38)
[2025-05-13 15:40] VITALS: BP 113/75; PULSE 88
--- NOTE | 2025-05-13 15:45 | US_ITS ---
PROCEDURE: US OB BIOPHYSICAL PROFILE CLINICAL INDICATION: Breech EIF COMPARISON: US US OB <= 14 WEEKS FETUS from 12/24/2024 US US OB /MATERNAL DETAIL from 03/18/2025 FINDINGS: Transabdominal sonographic images of the uterus were obtained. From her established due date she is 28weeks 1day. The following parameters are obtained: Viable Fetus in the breech presentation with a posterior placenta grade 2. Average ultrasound age is 30weeks 3days Estimated weight 1,556g, 3 lb 7 oz The cervix measures 5.1 cm Measurements: heart Rate = 139bpm BPD = 30weeks 3days, 95 percentile HC = 30weeks 1day, 79 percentile AC = 30weeks 6days, 97 percentile FL = 29weeks 6days, 80 percentile HC/AC is 1.03 FL/BPD is 0.75 FL/AC is 0.21 >98 percentile Amniotic fluid index: 17.4cm, MVP 5.78 cm Qualitative AFV:2 Breathing movements: 2 Gross Body Movements: 2 Tone: 2 Biophysical profile score: 8 No obvious anomalies evident.Kidneys, stomach, bladder, four-chamber heart, three-vessel cord appear normal. The previously described intracardiac echogenic foci was not seen on today's examination. IMPRESSION: 1. Viable fetus in the BREECH presentation with a posterior placenta grade 2. 2. The fluid is within normal limits with an amniotic fluid index 17.4 cm, MVP 5.78 cm. 3. Biophysical profile is 8/8 with good breathing movement and movement seen. 4. There has been good interval growth. The fetus is currently 2 weeks ahead on its growth, currently > 98 percentile. 5. Limited anatomical scan appears normal. 6. The previously described intracardiac echogenic foci is no longer seen. Dictated by: Eddie Peralta MD 05/13/2025 16:31 Eddie Peralta MD in OV 05/13/2025 16:31
[2025-05-14 11:36] LABS: RPR W/RFX Titers Nonreactive (Nonreactive)
== END 2025-05-13 15:45 | disposition home or self-care (01) ==
LOC: INF 14:32
PROVIDERS: PCP Nurse Practitioner; Visit Provider Obstetrics & Gynecology
DX: O32.1XX0 Maternal care for breech presentation, not applicable or unspecified (principal); O28.3 Abnormal ultrasonic finding on antenatal screening of mother; Z87.59 Personal history of other complications of pregnancy, childbirth and the puerperium; Z3A.28 28 weeks gestation of pregnancy; O26.892 Other specified pregnancy related conditions, second trimester; Z67.91 Unspecified blood type, Rh negative
CPT/HCPCS: 36415; 76816; 76819; 85025; 86592; 96372; J2790

== ENCOUNTER 2025-05-25 08:07 | Outpatient (CLI) | payer BC, SELFPAY ==
[2025-05-25 09:45] LABS: Glucose 1 Hour 123 mg/dL (74-100); Glucose,Fasting 87 mg/dl (74-100)
[2025-05-25 10:54] LABS: Glucose 2 Hour 114 mg/dL (74-100)
[2025-05-25 11:49] LABS: Glucose 3 Hour 90 mg/dL (74-100)
== END 2025-05-25 23:59 | disposition home or self-care (01) ==
LOC: LAB 08:09
PROVIDERS: PCP Nurse Practitioner; Visit Provider Obstetrics & Gynecology
DX: O24.419 Gestational diabetes mellitus in pregnancy, unspecified control (principal)
CPT/HCPCS: 36415; 82951

== ENCOUNTER 2025-06-11 15:04 | Outpatient (CLI) | payer BC, SELFPAY ==
--- NOTE | 2025-06-11 15:15 | US_ITS ---
PROCEDURE: US OB BIOPHYSICAL PROFILE CLINICAL INDICATION: Needs for GDM/LGA WITH JOSIE COMPARISON: US US OB <= 14 WEEKS FETUS from 12/24/2024 US US OB /MATERNAL DETAIL from 03/18/2025 US US OB BIOPHYSICAL PROFILE from 05/13/2025 FINDINGS: Transabdominal sonographic images of the uterus were obtained. From her established due date she is 32weeks 2days. The following parameters are obtained: Viable Fetus in the breech presentation with a posterior placenta grade 2. Average ultrasound age is 34weeks 6days Estimated weight 2,442g, 5 lb 6 oz. Cervix measures 4.4 cm Measurements: heart Rate = 119bpm BPD = 34weeks 6days, 96 percentile HC = 35weeks 2days, 87 percentile AC = 34weeks 2days, 94 percentile FL = 34weeks 4days, 89 percentile HC/AC is 1.04 FL/BPD is 0.78 FL/AC is 0.22 95 percentile Amniotic fluid index: 14.14cm, MVP 4.66 cm Qualitative AFV:2 Breathing movements: 2 Gross Body Movements: 2 Tone: 2 Biophysical profile score: 8 No obvious anomalies evident.Kidneys, stomach, bladder, four-chamber heart, three-vessel cord appear normal. IMPRESSION: 1. Viable fetus in the BREECH presentation with a posterior placenta grade 1. 2. The fluid is within normal limits with an amniotic fluid index 14.14 cm, MVP 4.66 cm. 3. There has been good interval growth with the fetus currently 95th percentile. The abdominal circumference continues to be 2 weeks ahead. The head circumference is 3 weeks ahead. Suggest continued close observation for accelerated growth. 4. Biophysical profile is 8/8 with good breathing movement and movement seen. 5. Limited anatomical scan appears normal. Dictated by: Eddie Peralta MD 06/11/2025 18:29 Eddie Peralta MD in OV 06/11/2025 18:29
== END 2025-06-11 23:59 | disposition home or self-care (01) ==
LOC: RAD 15:05
PROVIDERS: PCP Nurse Practitioner; Visit Provider Obstetrics & Gynecology
DX: O32.1XX0 Maternal care for breech presentation, not applicable or unspecified (principal); O36.63X0 Maternal care for excessive fetal growth, third trimester, not applicable or unspecified; O24.419 Gestational diabetes mellitus in pregnancy, unspecified control; Z3A.32 32 weeks gestation of pregnancy
CPT/HCPCS: 76816; 76819

== ENCOUNTER 2025-06-25 13:02 | Outpatient (CLI) | payer BC, SELFPAY ==
--- NOTE | 2025-06-25 13:00 | US_ITS ---
PROCEDURE: US OB BIOPHYSICAL PROFILE CLINICAL INDICATION: Needs for GDM/LGA WITH JOSIE COMPARISON: US US OB <= 14 WEEKS FETUS from 12/24/2024 US US OB /MATERNAL DETAIL from 03/18/2025 US OB BIOPHYSICAL PROFILE from 05/13/2025 US OB BIOPHYSICAL PROFILE from 06/11/2025 FINDINGS: Transabdominal sonographic images of the uterus were obtained. From her established due date she is 34weeks 2days. The following parameters are obtained: Viable Fetus in the cephalic presentation with a posterolateral placenta grade 2. The cervix measures 4.26 cm in length Measurements: heart Rate = 132bpm Amniotic fluid index: 13.01cm, MVP 3.73 cm Qualitative AFV:2 Breathing movements: 2 Gross Body Movements: 2 Tone: 2 Biophysical profile score: 8 No obvious anomalies evident.Kidneys, profile, stomach, bladder, four-chamber heart, three-vessel cord appear normal. IMPRESSION: 1. Viable fetus in the cephalic presentation with a posterolateral placenta 2. 2. The fluid is within normal limits with amniotic fluid index 13.01 cm, MVP 3.73 cm. 3. Biophysical profile is 8/8 with good breathing movement and movement seen. 4. Limited anatomical scan appears normal. Dictated by: Eddei Peralta MD 06/25/2025 14:41 Eddie Peralta MD in OV 06/25/2025 14:41
== END 2025-06-25 23:59 | disposition home or self-care (01) ==
LOC: RAD 13:03
PROVIDERS: PCP Nurse Practitioner; Visit Provider Obstetrics & Gynecology
DX: O24.419 Gestational diabetes mellitus in pregnancy, unspecified control (principal); O36.63X0 Maternal care for excessive fetal growth, third trimester, not applicable or unspecified; Z3A.34 34 weeks gestation of pregnancy
CPT/HCPCS: 76819

== ENCOUNTER 2025-07-08 15:11 | Outpatient (CLI) | payer BC, SELFPAY ==
--- NOTE | 2025-07-08 15:15 | US_ITS ---
PROCEDURE: US OB BIOPHYSICAL PROFILE CLINICAL INDICATION: Gest Diabetes,AMA COMPARISON: US US OB <= 14 WEEKS FETUS from 12/24/2024 US US OB /MATERNAL DETAIL from 03/18/2025 US OB BIOPHYSICAL PROFILE from 05/13/2025 US OB BIOPHYSICAL PROFILE from 06/11/2025 US OB BIOPHYSICAL PROFILE from 06/25/2025 FINDINGS: Transabdominal sonographic images of the uterus were obtained. From her established due date she is 36weeks 1day. The following parameters are obtained: Viable Fetus in the cephalic presentation with and fundal right lateral placenta grade 2. Average ultrasound age is 38weeks 4days Estimated weight 3,470g, 7 lb 10 oz The cervix measures 4.52 cm in length Measurements: heart Rate = 143bpm BPD = 38weeks 6days, >98 percentile HC = 39weeks 4days, 91 percentile AC = 38weeks 3days, 98 percentile FL = 37weeks 3days, 76 percentile HC/AC is 0.99 FL/BPD is 0.77 FL/AC is 0.21 96 percentile Amniotic fluid index: 15.27cm, MVP 4.19 cm. Qualitative AFV:2 Breathing movements: 2 Gross Body Movements: 2 Tone: 2 Biophysical profile score: 8 No obvious anomalies evident.Kidneys, bladder, stomach, four-chamber heart, three-vessel cord appear normal. IMPRESSION: 1. Viable fetus in the cephalic presentation with a fundal, right lateral placenta grade 2. 2. The fluid is within normal limits with an amniotic fluid index 15.27 cm, MVP 4.19 cm. 3. Biophysical profile is 8/8 with good breathing movement and movement seen. 4. There continues to be accelerated growth with the fetus currently 96th percentile. The abdominal circumference and head circumference continue to be 2 weeks ahead on growth. 5. Limited anatomical scan appears normal. Dictated by: Eddie Peralta MD 07/09/2025 07:32 Eddie Peralta MD in OV 07/09/2025 07:32
== END 2025-07-08 23:59 | disposition home or self-care (01) ==
LOC: RAD 15:12
PROVIDERS: PCP Nurse Practitioner; Visit Provider Obstetrics & Gynecology
DX: O36.63X0 Maternal care for excessive fetal growth, third trimester, not applicable or unspecified (principal); O24.419 Gestational diabetes mellitus in pregnancy, unspecified control; O09.293 Supervision of pregnancy with other poor reproductive or obstetric history, third trimester; O09.523 Supervision of elderly multigravida, third trimester; O26.893 Other specified pregnancy related conditions, third trimester; Z87.59 Personal history of other complications of pregnancy, childbirth and the puerperium; Z3A.36 36 weeks gestation of pregnancy
CPT/HCPCS: 76816; 76819

== ENCOUNTER 2025-07-22 14:02 | Outpatient (CLI) | payer BC, SELFPAY ==
--- NOTE | 2025-07-22 14:00 | US_ITS ---
PROCEDURE: US OB BIOPHYSICAL PROFILE CLINICAL INDICATION: AMA ,hx of pre-eclampsia,Rh negative COMPARISON: US US OB <= 14 WEEKS FETUS from 12/24/2024 US US OB /MATERNAL DETAIL from 03/18/2025 US OB BIOPHYSICAL PROFILE from 05/13/2025 US OB BIOPHYSICAL PROFILE from 06/11/2025 [facility] OB BIOPHYSICAL PROFILE from 06/25/2025 [facility] OB BIOPHYSICAL PROFILE from 07/08/2025 FINDINGS: Transabdominal sonographic images of the uterus were obtained. From her established due date she is 38weeks 1day. The following parameters are obtained: Viable Fetus in the cephalic presentation with a lateral fundal placenta grade 2. The cervix measures 3.37 cm in length. Measurements: heart Rate = 136bpm Amniotic fluid index: 16.83cm, MVP 5.18 cm Qualitative AFV:2 Breathing movements: 2 Gross Body Movements: 2 Tone: 2 Biophysical profile score: 8 No obvious anomalies evident.Kidneys, profile, stomach, four-chamber heart, three-vessel cord appear normal. IMPRESSION: 1. Viable fetus in the cephalic presentation with a lateral fundal placenta grade 2. 2. The fluid is within normal limits with an amniotic fluid index 16.82 cm, MVP 5.18 cm. 3. Biophysical profile is 8/8 with good breathing movement and movement seen. 4. Limited anatomical scan appears normal. Dictated by: Eddie Peralta MD 07/23/2025 13:59 Eddie Peralta MD in [facility] 07/23/2025 13:59
== END 2025-07-22 23:59 | disposition home or self-care (01) ==
LOC: RAD 14:02
PROVIDERS: PCP Obstetrics & Gynecology; Visit Provider Obstetrics & Gynecology
DX: O09.523 Supervision of elderly multigravida, third trimester (principal); O09.293 Supervision of pregnancy with other poor reproductive or obstetric history, third trimester; O26.893 Other specified pregnancy related conditions, third trimester; Z67.91 Unspecified blood type, Rh negative; Z3A.38 38 weeks gestation of pregnancy
CPT/HCPCS: 76819

== ENCOUNTER 2025-07-24 11:04 | Outpatient (CLI) | payer BC, SELFPAY ==
[2025-07-24 08:23] VITALS: BMI 34.7
[2025-07-24 11:58] LABS: Hematocrit 30.8 % (37.0-47.0); Hemoglobin 10.4 g/dL (12.2-16.2); Immature Granulocytes % 0.4 %; Mean Corpuscular HGB Conc 33.8 g/dL (31.8-35.4); Mean Corpuscular Hemoglobin 30.9 pg (27.0-31.2); Mean Corpuscular Volume 91.4 fl (81-99); Nucleated Red Blood Cells % 0 %; Platelet Count 106 K/mm3 (142-424); Red Blood Count 3.37 M/mm3 (4.20-5.40); Red Cell Distribution Width-SD 41.2 fL; White Blood Count 7.2 K/mm3 (4.8-10.8)
[2025-07-24 12:27] LABS: Alanine Aminotransferase 12 U/L (12-78); Albumin Level 3.3 g/dl (3.5-5.0); Albumin/Globulin Ratio 1.2 (1.1-1.8); Alkaline Phosphatase 142 U/L (38-126); Anion Gap 11.5 mEq/L (5-15); Aspartate Amino Transferase 18 U/L (14-36); Bilirubin,Total 1.2 mg/dl (0.2-1.3); Blood Urea Nitrogen 7 mg/dl (7-17); Calcium 8.8 mg/dl (8.4-10.2); Carbon Dioxide 21 mmol/L (22.0-30.0); Chloride 105 mmol/L (98-107); Creatinine Clearance Estimated 196 mL/min (50-200); Creatinine,Serum 0.60 mg/dl (0.52-1.04); Estimated Glomerular Filt Rate 112 ml/min (>60); GFR (African American) 135 ML/MIN (>60); Globulin 2.7 g/dL (1.3-3.2); Glucose 83 mg/dl (74-100); Potassium 3.5 mmoL/L (3.5-5.1); Sodium 134 mmol/L (136-145); Total Protein,Serum 6.0 g/dl (6.3-8.2)
== END 2025-07-24 23:59 | disposition home or self-care (01) ==
LOC: PREOP 11:05
PROVIDERS: PCP Nurse Practitioner; Visit Provider Obstetrics & Gynecology
DX: Z01.812 Encounter for preprocedural laboratory examination (principal)
CPT/HCPCS: 80053; 85025

== ENCOUNTER 2025-07-31 05:32 | Inpatient (IN) | payer BC, SELFPAY ==
--- OUTSIDE RECORDS SUMMARY | 2022-12-20 05:11 | XMS_ITS | Continuity of Care Document ---
Author Organization [facility] Address [address] [place] [address] Phone Care Team Providers Care Data Processing Manager Name Role Phone Rodolfo MSN, ANIMAL ANATOMIST, Shivani Unavailable Unavai lable Allergies, Adverse Reactions, [...] Location Reason(s) For Visit Diagnoses Date Provider [facility], [address] [place] [address], [facility], tel:[phone] [facility] No Information Dec-0 3 Rodolfo Parrish. [address] [place], [place], [id number] , . tel:[phone] [facility], [address] [place] [address], [facility], tel:[phone] [facility] [place] ear pain (chief complaint) Encounter for screening for depressionEncounter for screening examination for other mental health and behavioral disordersOtitis media in diseases classified elsewhere, right earEncounter for screening, unspecified Rodolfo Parrish. [address] [place], [place], [id number] , [place]. tel:[phone] Family History Family Member Type Diagnosis Age [...] type Covered republican ID Jason marie(julienne Starks [facility] [id number] Social History Type Description Quantity Date Captured [...]
[2025-07-24 12:27] VITALS: BMI 34.7
[2025-07-31] VITALS (11 sets, daily range): BP systolic 104–124; BP diastolic 59–78; PULSE 71–95; RESP 16–18; TEMP 36.3–36.8; O2SAT 98–99; BMI 34.7; BMI 34.5
[2025-07-31 06:24] LABS: Microscopic, Urine URINE MICROSCOPIC (MICROSCOPIC)
[2025-07-31 06:26] LABS: Hematocrit 31.4 % (37.0-47.0); Hemoglobin 10.6 g/dL (12.2-16.2); Immature Granulocytes % 0.4 %; Mean Corpuscular HGB Conc 33.8 g/dL (31.8-35.4); Mean Corpuscular Hemoglobin 30.7 pg (27.0-31.2); Mean Corpuscular Volume 91.0 fl (81-99); Nucleated Red Blood Cells % 0 %; Platelet Count 101 K/mm3 (142-424); Red Blood Count 3.45 M/mm3 (4.20-5.40); Red Cell Distribution Width-SD 40.9 fL; White Blood Count 7.4 K/mm3 (4.8-10.8)
[2025-07-31 06:27] LABS: Chloride 104 mmol/L (98-107); Sodium 134 mmol/L (136-145)
[2025-07-31] MEDS: CITRIC ACID/SODIUM CITRATE ORAL SOLN 30ML UDC 30 ML PO (06:27)
[2025-07-31 06:28] LABS: Bilirubin,Urine Negative (Negative); Color,Urine YELLOW (Yellow); Glucose,Urine (UA) Negative (Negative); Ketones,Urine Negative (Negative); Leukocyte Esterase,Urine Negative (Negative); PH,Urine 6.0 (5.0-8.5); Potassium 3.2 mmoL/L (3.5-5.1); Protein,Urine Negative (Negative); Specific Gravity, Urine 1.010 (1.005-1.030); Urobilinogen,Urine 0.2 EU/dl (0.2)
[2025-07-31] MEDS: LACTATED RINGERS 1000ML 1,000 ML 999 ML IV (06:29)
[2025-07-31 06:30] LABS: Blood Urea Nitrogen 5 mg/dl (7-17); Creatinine Clearance Estimated 196 mL/min (50-200); Creatinine,Serum 0.60 mg/dl (0.52-1.04); Estimated Glomerular Filt Rate 112 ml/min (>60); GFR (African American) 135 ML/MIN (>60)
[2025-07-31 06:31] LABS: Anion Gap 14.2 mEq/L (5-15); Calcium 8.6 mg/dl (8.4-10.2); Carbon Dioxide 19 mmol/L (22.0-30.0); Glucose 147 mg/dl (74-100)
[2025-07-31 06:37] LABS: Bacteria,Urine 1+ /lpf; RBC,Urine Occasional #/hpf (0-3)
[2025-07-31] MEDS: CLINDAMYCIN PHOSPHATE/D5W 900 MG/50 ML PIGGYBACK 100 MG IV (07:32)
--- NOTE | 2025-07-31 09:14 | P.PNANES_ITS ---
[facility] Disclaimer: The information contained in this section may have been updated after the patient was seen, as this information can be updated by other users. 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 Surgical History History of primary section Family History Other Diabetes Family history of heart disease Family history of hypertension Family history of thyroid disease History of high cholesterol Social History Smoking Status: Never smoker alcohol intake: never substance use type: denies use current occupational status: employed Travel in the last 8 weeks?: None household members: family housing: house do you feel safe at home: Yes victim of physical abuse: No victim of emotional abuse: No victim of sexual abuse: No Have you lived/traveled outside [place] in past 30 days?: No Contact w/someone who lives/traveled outside US past 30 days?: No Exposure to someone with infectious disease in past 14 days?: No Do you have a fever (greater than 100.4 F or 38 C)?: No Have you tested positive for COVID-19?: No Exposed to someone with COVID-19 in past 14 days?: No Do you have a sore throat?: No Do you have a cough?: No Do you have any weakness?: No Do you have any diarrhea?: No Are you experiencing any unusual bleeding?: No Do you have any muscle aches/pain?: No Do you have any abdominal pain?: No Are you experiencing loss of taste or smell?: No [facility] Anesthesia Checklist Patient Identification Patient Identification: Verbal (Name & ) Structural Data Admitted From: Inpatient Planned Operative Procedure/s: c/section Consent for Planned Operative Procedure(s) Verified: Yes NPO Status Verified Time NPO: 00:00 Additional verifications Anesthesia Reactions: No Airway Assessment Mallampati Score:: Class II C-Spine Mobility Assessed: Yes TMJ Mobility Assessed: Yes Dentition: Good Dentition Neurological Assessment Level of Consciousness: Awake, Alert and Appropriate Anesthesia Plan Anesthesia Risk discussed: Yes Anesthesia Plan: Verified ASA Class: II Anesthesia Type: Spinal
[2025-07-31] MEDS: OXYTOCIN/RINGERS LACTATE 30 UNITS/500 ML BAG 999 UNITS IV (09:15)
--- NOTE | 2025-07-31 09:15 | EXP.ANES.I ---
[facility] Anesthesia Record Part I Anesthesia Record I Intake, IV Amount: 1,600 Hydration: Adequate Estimated blood loss (mL): 1,500 Urine output (mL): 800 Blood Pressure: 107/67 SaO2: 98 Pulse Rate: 87 Airway Patency: Patent Respiratory Rate: 16 Temperature: 97.4 F Patient is:: Awake and Stable Stable to PACU at:: 09:07
[2025-07-31] MEDS: LACTATED RINGERS 1000ML 1,000 ML 125 ML IV (09:30)
--- NOTE | 2025-07-31 10:01 | P.OP_ITS ---
Date of procedure: 07/31/25 Pre-op Diagnosis:: 1. 39 weeks 3days gestation, Bautista 2. Advanced maternal age 3. Hx of hemorrhage 4. Echogenic intracardiac focus of the fetus 5. GBS negative 6. Rh negative Post-op Diagnosis:: 1. 39 weeks 3days gestation, Bautista 2. Advanced maternal age 3. Hx of hemorrhage 4. Echogenic intracardiac focus of the fetus 5. GBS negative 6. Rh negative Procedure performed:: Repeat Delivery Surgeon:: Jackie Devine DO [employer] Generator(s):: Ilia Huerta DO [employer] INTEGRATION SPECIALIST:: Antony Bobby Anesthesia: spinal Estimated blood loss (mL): 1,500 Clinical Note:: Raissa is a 39-year-old G4, P3, 3 prior deliveries who presented for scheduled delivery this morning. Of note her last delivery was complicated by hemorrhage of 3 L and required general anesthesia in several hours to complete her surgery Operative findings:: 1. Live viable male : undecided. Weight: 8pounds 13ounces. Apgars 9 and 10 at 1 and 5 minutes respectively 2. Significant pelvic adhesions. Anterior abdominal wall adherent to the anterior uterus. Thick adhesions of the bladder to the anterior uterine wall at the lower uterine segment Operative note:: Medications: Gentamicin, clindamycin, tranexamic acid Summary: Procedure explained in its entirety. The patient was counseled on the risks and benefits of section including bleeding, vascular injury, infection, and injury to the surrounding structures. Hemorrhage requiring life saving blood transfusion resulting in blood born viral infection or allergic reaction was explained and the patient consented to blood transfusion. Possible need for further operative measures prolonging recovery time and hospitalization reviewed to include hysterectomy. Procedure explained in its entirety and patient had no further questions. Consented to procedure. It was confirmed that she did not desire a tubal ligation The patient was taken back to the operating room where adequate spinal anesthesia was obtained. Pneumatic compression stockings applied to lower extremities. Antibiotics were administered for infection prophylaxis. She was placed in the dorsal supine position Urinary catheter was placed and found to be draining clear urine. The patient was prepped and draped in sterile fashion. Anesthesia was tested and and found to be adequate. A Pfannenstiel skin incision was made with the scalpel. Subcutaneous bleeding vessels were cauterized with the bovie. The incision was taken down to the fascia with the bovie. The fascia was knicked in the midline and sharply extended laterally. The superior aspect of the fascia was grasped with Quirino clamps and the rectus muscle was taken down with the Bovie. It was at this level that it was suspected that the uterus was adherent to the fascia this was confirmed these adhesions were carefully taken down sharply and with cautery for hemostasis the anterior uterus was from the fascia and the plane was established. Quirino's were used to grasp the inferior aspect of the fascia and the plane was created sharply taking down the inferior fascia. This is where significant bladder adhesions were noted in the extended laterally the adnexa was adherent and unable to be visualized. Secondary to the dense bladder adhesion decision was made to make a higher incision on the uterus for delivery given the adhesions and scarring the incision was required to be extended laterally this was extended on the patient's right apex to where the previous incision was made. Previous incision was off centered and extended further to the right this incision was extended to its full extent. Secondary to still having a restrictive access to the uterus a Maylard incision was made gently bilaterally with the Bovie cautery with care to avoid the inferior epigastric. On the patient's left there was bleeding but I do not believe that the inferior epigastric was injured this was made hemostatic with Bovie cautery. At this time it was felt to have adequate space for delivery. An area that was suspected to be 3 cm above the lower uterine segment was identified and noted to be free of bladder adhesions and incised Allis clamps were used to grasp and elevate the incision and the scalpel was used to make the incision mindful and index finger was used to poke through the last layer of the uterine wall and bulging membranes were noted. The head was able to be pulled up to the incision and adequate space was noted. An Allis clamp was used to ruptured membranes and a milky fluid was noted The fetus was in cephalic presentation. The head was carefully elevated out of the pelvis. Fundal pressure was applied when head was brought into incision. The infants head was delivered without difficulty. The shoulder and body followed without complication. Delivery occurred at 0810. The mouth and nose were suctioned with a bulb. The umbilical cord was clamped and cut. was taken to warmer for evaluation by the sole edge inker machine. Cord blood was collected. The placenta was delivered via fundal massage. IV Pitocin was initiated. Inside of the uterus was gently cleared of blood and clots with lap sponge. The hysterotomy was closed with 0 Vicryl in a running locked fashion. There was still significant amount of bleeding and a second 0 Vicryl was run for an imbricating stitch. There is still a significant amount of bleeding and I used a 0 Monocryl so the braided suture would not tear through the uterine serosa and wall as much hemostasis was achieved with this. The hysterotomy was visualized and noted to be hemostatic. Surgicel powder was placed over the hysterotomy and areas of ooze and a 3-minute timer was set with no bleeding noted. A piece of Gelfoam was placed over top of it for added prophylaxis. The gutters were inspected bilaterally and cleared of blood and clots with lap sponges. The uterine incision was reinspected and hemostasis noted. There was not any peritoneum to be reapproximated. The fascia was closed in a running nonlocked fashion using #1 Vicryl x2 meeting right of midline. Fascia was noted as not having gaps or defects. The subcutaneous fat was closed with 2-0 Vicryl. Skin was closed with the INSORB suture in a subcuticular fashion. Patient tolerated the procedure well and all counts were correct x3, per nursing. Patient will receive tap blocks and then be transported to the OB PACU for recovery and infant bonding. Condition: stable Disposition: PACU Specimens:: 1. placenta Complications:: significant dense adhesions requiring a higher transverse uterine incision.
--- NOTE | 2025-07-31 10:23 | EXP.HP ---
History of Present Illness *Admission Date: 07/31/25 *Reason for visit:: delivery *History of present illness: Raissa Suero is a pleasant 39-year-old G4, P3 presenting at 39 weeks and 3 days gestation for a scheduled delivery. This has been complicated by advanced maternal age, and history of hemorrhage, and 3 previous deliveries. On presentation she endorsed good movement, denies any leakage of fluid, vaginal bleeding, contractions. O-, antibody negative, rubella immune, hepatitis B negative, hepatitis C negative, RPR negative, HIV negative 1 hour GTT: 148 3-hour GTT: 87/123/114/90 GBS negative PFSH PFS Disclaimer: The information contained in this section may have been updated after the patient was seen, as this information can be updated by other users. Medical History (Updated 07/31/25 @ 12:45 by Jackie Devine DO) Carrier of fragile X chromosome Rh negative state in antepartum period ASCUS with positive high risk HPV Surgical History History of primary section Family History Other Diabetes Family history of heart disease Family history of hypertension Family history of thyroid disease History of high cholesterol Social History Smoking Status: Never smoker alcohol intake: never substance use type: denies use current occupational status: employed Travel in the last 8 weeks?: None household members: family housing: house do you feel safe at home: Yes victim of physical abuse: No victim of emotional abuse: No victim of sexual abuse: No Have you lived/traveled outside US in past 30 days?: No Contact w/someone who lives/traveled outside US past 30 days?: No Exposure to someone with infectious disease in past 14 days?: No Do you have a fever (greater than 100.4 F or 38 C)?: No Have you tested positive for COVID-19?: No Exposed to someone with COVID-19 in past 14 days?: No Do you have a sore throat?: No Do you have a cough?: No Do you have any weakness?: No Do you have any diarrhea?: No Are you experiencing any unusual bleeding?: No Do you have any muscle aches/pain?: No Do you have any abdominal pain?: No Are you experiencing loss of taste or smell?: No Other Medical History Have you received the Flu Vaccine for this season: No Have you received the Pneumonia Vaccine: No Review of Systems Review of Systems Review of systems (narrative): Review of Systems Constitutional: Denies fever, chills, and sweats Eyes: Denies vision change/ pain Respiratory: Denies cough and shortness of breath Cardiovascular: Denies chest pain and lightheadedness Gastrointestinal: Admits abdominal pain with contractions. Denies nausea, vomiting. Genitourinary: Denies dysuria and incontinence Musculoskeletal: Denies shoulder pain and back pain Neurological: Denies change in speech or headaches Meds Home Medications and Allergies Home Medications ?Medication ?Instructions ?Recorded ?Confirmed ?Type vits no.126-ferrous fum 1 tab PO DAILY 12/20/24 07/31/25 History 28 mg iron-folic acid 800 mcg tablet (Classic ) aspirin 81 mg tablet,delayed 81 mg PO BID 04/16/25 07/31/25 History release (Adult Low Dose Aspirin) famotidine 20 mg tablet 20 mg PO DAILY 07/24/25 07/31/25 History New Prescriptions to Start Prescriptions: Allergies Allergy/AdvReac Type Severity Reaction Status Date / Time meclizine Allergy Intermediate Swelling Verified 07/31/25 06:01 of the Eye Penicillins Allergy Mild Unknown Verified 07/31/25 06:01 allergy reaction Exam Data for Last 24 hours Vital signs and Labs for Last 24 Hours: Temp Pulse Resp BP Pulse Ox O2 Del Method 98.0 F 76 18 110/65 98 Room Air 07/31/25 09:37 07/31/25 09:37 07/31/25 09:37 07/31/25 09:37 07/31/25 09:37 07/31/25 09:37 Laboratory Results - last 24 hr 07/31/25 06:06: WBC 7.4, RBC 3.45 L, Hgb 10.6 L, Hct 31.4 L, MCV 91.0, MCH 30.7, MCHC 33.8, RDW 12.7, Plt Count 101 L, MPV 13.0 H, Neut % (Auto) 66.7, Lymph % (Auto) 28.3, Hubbard % (Auto) 3.8, Eos % (Auto) 0.5, Baso % (Auto) 0.3, Neut # (Auto) 5.0, Lymph # (Auto) 2.1, Hubbard # (Auto) 0.3, Eos # (Auto) 0.0, Baso # (Auto) 0.0, Sodium 134 L, Potassium 3.2 L, Chloride 104, Carbon Dioxide 19 L, Anion Gap 14.2, BUN 5 L, Creatinine 0.60, Estimated Creat Clear 196, Estimated GFR 112, Est GFR ( Amer) 135, Glucose 147 H, Calcium 8.6, Urine Color Yellow, Urine Appearance Clear, Urine pH 6.0, Ur Specific Orla 1.010, Urine Protein Negative, Urine Glucose (UA) Negative, Urine Ketones Negative, Urine Blood Negative, Urine Nitrate Negative, Urine Bilirubin Negative, Urine Urobilinogen 0.2, Ur Leukocyte Esterase Negative, Urine RBC Occasional, Urine WBC 3-5, Ur Squamous Epith Cells 10-20, Urine Bacteria 1+, Blood Type O Negative, Antibody Screen Negative, Crossmatch (AHG) See Detail I & O for Last 24 hours: Intake & Output 07/28/25 07/29/25 07/30/25 07/31/25 23:59 23:59 23:59 23:59 Intake Total 1650 / 1650 Balance 1650 / 1650 Weight 214 lb 15.987 oz Narrative: General: patient is alert oriented in no acute distress and responds appropriately to questions. HEENT: NCAT, EOMI, moist mucous membranes, neck supple with full ROM Cardiovascular: RRR +S1/S2, no murmurs or rubs Pulmonary: Clear to auscultation bilaterally, nonlabored breathing, symmetric chest rise Abdominal: Gravid abdomen appropriate for gestation. No guarding, rebound, or tenderness noted. SVE: On admission the patient was so uncomfortable the RN was not able to adequately assess the cervix. The patient was admitted, received an epidural and then was checked and noted to be 8cm. Extremities: trace edema, no tenderness or cyanosis noted Skin: Normal turgor, intact, warm. Negative for erythema, pallor, petechia, or lesions Neurologic: Negative for sensory or motor deficit Psychiatric: Normal affect, normal thought process, good judgment and insight, no depression or anxious mood appreciated. *Routine HEENT Exam Head: Present normocephalic and atraumatic Eye: Present EOMI, PERRL and normal accommodation; Absent conjunctival icterus, scleral injection, nystagmus or exophthalmos ENT: Present mucous membranes moist *Routine Respiratory Exam Respiratory: Present CTA bilaterally, normal respiratory effort, able to speak in complete sentences and symmetric chest movement; Absent accessory muscle use, decreased breath sounds, rales, respiratory distress, wheezes, distant breath sounds or diminished air movement *Routine Cardiovascular Exam Cardiovascular: Present RRR, Normal S1 and Normal S2; Absent murmur or gallop *Routine Abdominal Exam Abdominal: Present soft and normoactive bowel sounds; Absent tenderness, distended, rebound or guarding *Routine Rectal Exam Rectal:: deferred *Routine Genitalia Exam Genitalia:: normal female Assessment and Plan *Assessment and plan (1) Rh negative state in antepartum period: Status: Acute Category: Medical Code(s): O26.899 - Other specified related conditions, unspecified trimester; Z67.91 - Unspecified blood type, Rh negative (2) Echogenic intracardiac focus of fetus on ultrasound: Status: Acute Category: Medical Code(s): O28.3 - Abnormal ultrasonic finding on screening of mother (3) History of pre-eclampsia: Status: Acute Category: Medical Code(s): Z87.59 - Personal history of other complications of , childbirth and the puerperium (4) Advanced maternal age (AMA) in : Status: Acute Category: Medical (5) : Status: Acute Category: Medical Code(s): Z34.90 - Encounter for supervision of normal , unspecified, unspecified trimester (6) ASCUS with positive high risk HPV: Status: Acute Category: Medical (7) History of hemorrhage: Status: Acute Category: Medical Code(s): Z87.59 - Personal history of other complications of , childbirth and the puerperium (8) 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 Status: Acute Category: Medical Code(s): Z14.8 - Genetic carrier of other disease (9) Anemia: Status: Acute Category: Medical Code(s): D64.9 - Anemia, unspecified (10) Benign gestational thrombocytopenia in third trimester: Status: Acute Category: Medical Code(s): O99.113 - Other diseases of the blood and blood-forming organs and certain disorders involving the immune mechanism complicating , third trimester; D69.6 - Thrombocytopenia, unspecified Plan - Monitor vitals - Admit to L&D for scheduled delivery - External FHR and TOCO monitor - GBS neg/ Blood type: O- - Hemoglobin: 10.6, Plt: 101 - Plan for spinal anesthesia - Anticipate delivery of male : Undecided #Gestational, cytopenia - Platelets 101 - Continue to follow closely #Anemia - Normocytic anemia - Will workup for causes of normocytic anemia including iron deficiency with a concomitant B12 or folate deficiency following delivery this workup will ensue - Watch closely for signs or symptoms of anemia - History of hemorrhage Reviewed the risks benefits and alternatives to Repeat delivery. Discussed the risk of bleeding, infection injury to the surrounding structures. Patient consented to blood transfusion to medically necessary. Reviewed the rare risk of hysterectomy if bleeding is unable to be controlled. Discussed risk of infection, the patient has no allergies and will receive 2 g of Ancef preoperatively. Reviewed the risk of injury to surrounding structures including the bowel, bladder, reproductive organs, and neurovascular bundles. Patient voiced understanding. Discussed the increased risk with prior surgery and scarring. Patient and significant other voiced understanding desire to proceed
[2025-07-31] MEDS: ACETAMINOPHEN 500MG TAB 1000 MG PO ×3 (10:32→22:34)
[2025-07-31] MEDS: KETOROLAC 30MG/ML VIAL 30 MG IV ×3 (10:33→22:34)
[2025-07-31] MEDS: OXYCODONE 5MG IMMEDIATE RELEASE TABLET 5 MG PO (10:34)
[2025-07-31 16:30] LABS: RPR W/RFX Titers Nonreactive (Nonreactive)
[2025-07-31] MEDS: PRENATAL MULTIVITAMIN W/IRON 1 EACH PO (16:50)
[2025-07-31] MEDS: SENNA 8.6MG TABLET 8.6 MG PO (22:35)
[2025-08-01 05:58] LABS: Hematocrit 25.8 % (37.0-47.0); Immature Granulocytes % 0.4 %; Mean Corpuscular HGB Conc 32.2 g/dL (31.8-35.4); Mean Corpuscular Hemoglobin 29.7 pg (27.0-31.2); Mean Corpuscular Volume 92.5 fl (81-99); Nucleated Red Blood Cells % 0 %; Platelet Count 106 K/mm3 (142-424); Red Blood Count 2.79 M/mm3 (4.20-5.40); Red Cell Distribution Width-SD 42.8 fL; White Blood Count 9.8 K/mm3 (4.8-10.8)
[2025-08-01 06:00] LABS: Albumin Level 2.7 g/dl (3.5-5.0); Chloride 104 mmol/L (98-107); Potassium 3.6 mmoL/L (3.5-5.1); Sodium 133 mmol/L (136-145)
[2025-08-01 06:03] LABS: Alanine Aminotransferase 11 U/L (12-78); Albumin/Globulin Ratio 1.1 (1.1-1.8); Alkaline Phosphatase 119 U/L (38-126); Anion Gap 9.6 mEq/L (5-15); Aspartate Amino Transferase 27 U/L (14-36); Bilirubin,Total 0.6 mg/dl (0.2-1.3); Blood Urea Nitrogen 6 mg/dl (7-17); Calcium 8.0 mg/dl (8.4-10.2); Carbon Dioxide 23 mmol/L (22.0-30.0); Creatinine Clearance Estimated 196 mL/min (50-200); Creatinine,Serum 0.60 mg/dl (0.52-1.04); Estimated Glomerular Filt Rate 112 ml/min (>60); GFR (African American) 135 ML/MIN (>60); Globulin 2.5 g/dL (1.3-3.2); Glucose 95 mg/dl (74-100); Total Protein,Serum 5.2 g/dl (6.3-8.2)
[2025-08-01] MEDS: KETOROLAC 30MG/ML VIAL 30 MG IV (06:03)
[2025-08-01] MEDS: ACETAMINOPHEN 500MG TAB 1000 MG PO ×4 (06:04→23:34)
[2025-08-01 06:16] LABS: Hemoglobin 8.5 g/dL (12.2-16.2)
[2025-08-01 08:20] VITALS: BP 123/68; PULSE 81; RESP 18; TEMP 36.7; O2SAT 100
[2025-08-01] MEDS: IRON SUCROSE COMPLEX 200 MG in 0.9 % SODIUM CHLORIDE 100 ML 220 MG IV (09:05)
[2025-08-01] MEDS: FAMOTIDINE 20MG TABLET 20 MG PO (09:05)
[2025-08-01] MEDS: RHO(D) IMMUNE GLOBULIN 1,500 UNIT (300MCG) SYRINGE 300 MCG IM (09:05)
[2025-08-01] MEDS: SENNA 8.6MG TABLET 8.6 MG PO ×2 (12:02→23:34)
[2025-08-01] MEDS: IBUPROFEN 400 MG TABLET 800 MG PO ×2 (12:02→19:50)
--- NOTE | 2025-08-01 12:13 | P.PN_ITS ---
Subjective *Date: 08/01/25 *Time: 08:38 Interval history: Raissa Suero is a pleasant 39yo postoperative day #1 from a repeat low-transverse delivery at 39+ weeks gestation. see most complicated by advanced maternal age and previous delivery. delivery was complicated by multiple adhesions, a hemorrhage, and needing to make an incision on the uterus above the lower uterine segment. Postoperative course was complicated by requiring IV iron secondary to blood loss anemia. Otherwise the patient is doing very well. Reports that her pain is appropriately controlled when I went to see her this morning she was in the shower so I had to go back and see her this afternoon. She is ambulating, tolerating p.o., and having bowel movements and voiding without complication -Reports pain is well-controlled -Reports she is tolerating p.o. without nausea or vomiting. -Reports her lochia is scant. -Undecided on contraception -She is breast-feeding her male -Ambulating, voiding difficulty or dysuria. Denies chest pain shortness of breath or pain in her legs. No further complaints at this time. Exam Data for Last 24 hours Vital signs and Labs for Last 24 Hours: Temp Pulse Resp BP Pulse Ox O2 Del Method 98.0 F 81 18 123/68 100 Room Air 08/01/25 08:20 08/01/25 08:20 08/01/25 08:20 08/01/25 08:20 08/01/25 08:20 08/01/25 08:20 Laboratory Results - last 24 hr 07/31/25 06:06: RPR w/Rflx to Titer Nonreactive 08/01/25 04:59: WBC 9.8 D, RBC 2.79 L, Hgb 8.5 L D, Hct 25.8 L, MCV 92.5, MCH 29.7, MCHC 32.2, RDW 12.9, Plt Count 106 L, MPV 12.8 H, Neut % (Auto) 76.9, Lymph % (Auto) 16.4, [place] % (Auto) 5.7, Eos % (Auto) 0.4, Baso % (Auto) 0.2, Neut # (Auto) 7.6, Lymph # (Auto) 1.6, [place] # (Auto) 0.6, Eos # (Auto) 0.0, Baso # (Auto) 0.0, Sodium 133 L, Potassium 3.6, Chloride 104, Carbon Dioxide 23, Anion Gap 9.6, BUN 6 L, Creatinine 0.60, Estimated Creat Clear 196, Estimated GFR 112, Est GFR ( Amer) 135, Glucose 95 D, Calcium 8.0 L, Total Bilirubin 0.6, AST 27, ALT 11 L, Alkaline Phosphatase 119, Total Protein 5.2 L, Albumin 2.7 L, Globulin 2.5, Albumin/Globulin Ratio 1.1, Screen Negative, Baby's Rh Status Positive I & O for Last 24 hours: Intake & Output 07/29/25 07/30/25 07/31/25 08/01/25 23:59 23:59 23:59 23:59 Intake Total 3653.250 / 3653.250 110 / 110 Output Total 1200 / 1200 Balance 2453.250 / 2453.250 110 / 110 Weight 214 lb 15.987 oz Narrative: General: patient is alert oriented in no acute distress and responds appropriately to questions. Appears to be in minimal pain. Sitting up in the chair and doing well HEENT: NCAT, EOMI, moist mucous membranes, neck supple with full ROM Cardiovascular: RRR +S1/S2, no murmurs or rubs Pulmonary: Clear to auscultation bilaterally, nonlabored breathing, symmetric chest rise Abdominal: Fundus at the umbilicus, firm, and tenderness appropriate for the period. Extremities: trace edema, no tenderness or cyanosis noted Skin: Normal turgor, intact, warm. Negative for erythema, pallor, petechia, or lesions. Incision is healing well Neurologic: Negative for sensory or motor deficit Psychiatric: Normal affect, normal thought process, good judgment and insight, no depression or anxious mood appreciated. Assessment and Plan *Assessment and plan (1) Rh negative state in antepartum period: Status: Acute Category: Medical Code(s): O26.899 - Other specified related conditions, unspecified trimester; Z67.91 - Unspecified blood type, Rh negative (2) Echogenic intracardiac focus of fetus on ultrasound: Status: Acute Category: Medical Code(s): O28.3 - Abnormal ultrasonic finding on screening of mother (3) History of pre-eclampsia: Status: Acute Category: Medical Code(s): Z87.59 - Personal history of other complications of , childbirth and the puerperium (4) Advanced maternal age (AMA) in : Status: Acute Category: Medical (5) : Status: Acute Category: Medical Code(s): Z34.90 - Encounter for supervision of normal , unspecified, unspecified trimester (6) ASCUS with positive high risk HPV: Status: Acute Category: Medical (7) History of hemorrhage: Status: Acute Category: Medical Code(s): Z87.59 - Personal history of other complications of , childbirth and the puerperium (8) 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 Status: Acute Category: Medical Code(s): Z14.8 - Genetic carrier of other disease (9) Anemia: Status: Acute Category: Medical Code(s): D64.9 - Anemia, unspecified (10) Benign gestational thrombocytopenia in third trimester: Status: Acute Category: Medical Code(s): O99.113 - Other diseases of the blood and blood-forming organs and certain diso rders involving the immune mechanism complicating , third trimester; D69.6 - Thrombocytopenia, unspecified (11) Status post delivery: Status: Acute Category: Surgical Code(s): Z98.891 - History of uterine scar from previous surgery (12) hemorrhage: Status: Resolved Category: Medical Code(s): O72.1 - Other immediate hemorrhage Plan Stable. POD#1 s/p repeat low-transverse delivery -Doing well. VSS. Serial lochia and fundal checks. -Continue with perineal ice packs for discomfort -Hemoglobin: 10.6--> 8.5 - asymptomatic anemia noted. Vitals stable. Continue monitoring. DC with Fe - IV iron ordered -O-/antibody negative. Infant is also Rh+, RhoGAM should be given. KB will be ordered -, male infant -Desires circumcision, peds completed -Contraception: undecided -Follow-up 1-2 weeks for routine visit -Dispo: home in 1-3 days pending mother/ status #Gestational, thrombocytopenia - Platelets 101 --> 106 - Continue to follow closely #Anemia - Normocytic anemia - Will workup for causes of normocytic anemia including iron deficiency with a concomitant B12 or folate deficiency following delivery this workup will ensue - Watch closely for signs or symptoms of anemia - History of hemorrhage
[2025-08-01] MEDS: PRENATAL MULTIVITAMIN W/IRON 1 EACH PO (17:13)
[2025-08-01 19:44] VITALS: BP 127/63; PULSE 103; RESP 18; TEMP 36.8; O2SAT 98
[2025-08-02] MEDS: IBUPROFEN 400 MG TABLET 800 MG PO (04:05)
[2025-08-02 04:11] VITALS: BP 126/65; PULSE 85; RESP 17; TEMP 36.7; O2SAT 97
--- NOTE | 2025-08-02 07:30 | P.PNANES_ITS ---
[facility] Anesthesia Record Part II Anesthesia Record Part II Discharge Time: 09:37 Destination: Obstetric PACU nurse assessment reviewed?: Yes Patient Condition:: Good Anesthesia Complications:: None Swallowing reflex intact?: Yes Airway Patency: Patent Cyanosis?: No Blood Pressure: 110/65 SaO2: 98 Respiratory Rate: 18 Pulse Rate: 76 Temperature: 98 F Mental Status: Alert & Oriented Pain level:: 0 Nausea and/or vomitting:: None Intake, IV Amount: 0 Hydration: Adequate
[2025-08-02 07:31] VITALS: BP 110/65; PULSE 76; RESP 18; TEMP 36.6; O2SAT 98
--- NOTE | 2025-08-02 08:44 | EXP.DC.SUM ---
General Admission date:: 07/31/25 Discharge date: 08/02/25 HPI HPI HPI: Raissa Suero is a pleasant 39-year-old G4, P3 presenting at 39 weeks and 3 days gestation for a scheduled delivery. This has been complicated by advanced maternal age, and history of hemorrhage, and 3 previous deliveries. On presentation she endorsed good movement, denies any leakage of fluid, vaginal bleeding, contractions. O-, antibody negative, rubella immune, hepatitis B negative, hepatitis C negative, RPR negative, HIV negative 1 hour GTT: 148 3-hour GTT: 87/123/114/90 GBS negative Hospital Course Hospital Course Hospital Course: Raissa Suero is a very pleasant 39-year-old G4, P4 postoperative day #2 from a repeat low-transverse delivery delivery was complicated by a hemorrhage and significant adhesions. She was Rh- and received RhoGAM. She delivered a live viable male infant on 07/31/2025 at 08 10 the weighed 8 pounds and 13 ounces and had Apgars of 9 and 10 at 1 and 5 minutes respectively. Postoperatively secondary to blood loss anemia she received IV iron. This was also complicated by gestational thrombocytopenia She has done well and has remained afebrile with her at her hospitalization. She is eating and drinking and ambulating. She is breast feeding. Her lochia is normal. She has O Rh - blood, she is rubella immune and was group B streptococcus negative. She will be discharged home to follow-up with Dr. Devine in 2 weeks time. She will continue with her vitamins and iron. She has a prescription for Percocet and will continue these at home. She will take ibuprofen as well. She was given the usual instructions with respect to limiting her activity, driving and sexual activity. She was given instructions with respect to wound care. Her condition on discharge is stable and improved. Exam Data for Last 24 hours Vital signs and Labs for Last 24 Hours: Temp Pulse Resp BP Pulse Ox O2 Del Method 98.1 F 85 18 126/65 97 Room Air 08/02/25 04:11 08/02/25 04:11 08/02/25 07:31 08/02/25 04:11 08/02/25 04:11 08/02/25 04:11 I & O for Last 24 hours: Intake & Output 07/30/25 07/31/25 08/01/25 10/17/25 23:59 23:59 23:59 23:59 Intake Total 3653.250 / 3653.250 110 / 110 0 / 0 Output Total 1200 / 1200 Balance 2453.250 / 2453.250 110 / 110 0 / 0 Weight 214 lb 15.987 oz Constitutional Constitutional: no acute distress *Routine HEENT Exam Head: Present normocephalic Eye: Present EOMI and PERRL ENT: Present mucous membranes moist *Routine Neck Exam Neck: Present supple; Absent lymphadenopathy *Routine Respiratory Exam Respiratory: Present CTA bilaterally *Routine Cardiovascular Exam Cardiovascular: Present RRR *Routine Abdominal Exam Abdominal: Present soft and normoactive bowel sounds; Absent tenderness *Routine Extremities Exam Extremities: Absent cyanosis, clubbing or edema *Routine Skin Exam Skin: Present warm; Absent rash *Routine Neurological Exam Neurological: Present alert and oriented X3 DS: Diagnosis Discharge Diagnosis (1) Rh negative state in antepartum period: Status: Acute Code(s): O26.899 - Other specified related conditions, unspecified trimester; Z67.91 - Unspecified blood type, Rh negative (2) Echogenic intracardiac focus of fetus on ultrasound: Status: Acute Code(s): O28.3 - Abnormal ultrasonic finding on screening of mother (3) History of pre-eclampsia: Status: Acute Code(s): Z87.59 - Personal history of other complications of , childbirth and the puerperium (4) Advanced maternal age (AMA) in : Status: Acute (5) : Status: Acute Code(s): Z34.90 - Encounter for supervision of normal , unspecified, unspecified trimester (6) ASCUS with positive high risk HPV: Status: Acute (7) History of hemorrhage: Status: Acute Code(s): Z87.59 - Personal history of other complications of , childbirth and the puerperium (8) Carrier of fragile X chromosome: Status: Acute Code(s): Z14.8 - Genetic carrier of other disease Problem details: 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 (9) Anemia: Status: Acute Code(s): D64.9 - Anemia, unspecified (10) Benign gestational thrombocytopenia in third trimester: Status: Acute Code(s): O99.113 - Other diseases of the blood and blood-forming organs and certain disorders involving the immune mechanism complicating , third trimester; D69.6 - Thrombocytopenia, unspecified (11) Status post delivery: Status: Acute Code(s): Z98.891 - History of uterine scar from previous surgery (12) hemorrhage: Status: Resolved Code(s): O72.1 - Other immediate hemorrhage Meds Home Medications and Allergies Home Medications ?Medication ?Instructions ?Recorded ?Confirmed ?Type vits no.126-ferrous fum 1 tab PO DAILY 12/20/24 07/31/25 History 28 mg iron-folic acid 800 mcg tablet (Classic ) aspirin 81 mg tablet,delayed 81 mg PO BID 04/16/25 07/31/25 History release (Adult Low Dose Aspirin) famotidine 20 mg tablet 20 mg PO DAILY 07/24/25 07/31/25 History acetaminophen 500 mg tablet 500 mg PO Q6H PRN fever or pain 08/02/25 Rx #30 tabs ibuprofen 800 mg tablet 800 mg PO Q8H PRN pain #60 tabs 08/02/25 Rx oxycodone 5 mg tablet 5 mg PO Q8H PRN pain #20 tabs 08/02/25 Rx sennosides 8.6 mg tablet (Senna 8.6 mg PO BIDP PRN Constipation 08/02/25 Rx Lax) #60 tabs simethicone 125 mg tablet 125 mg PO DAILY PRN abdominal 08/02/25 Rx distention #60 tabs New Prescriptions to Start Prescriptions: acetaminophen Jackie Devine ibuprofen Jackie Devine oxycodone Jackie Devine sennosides [Senna Lax] Jackie Devine simethicone Jackie Devine Allergies Allergy/AdvReac Type Severity Reaction Status Date / Time meclizine Allergy Intermediate Swelling Verified 07/31/25 06:01 of the Eye Penicillins Allergy Mild Unknown Verified 07/31/25 06:01 allergy reaction Discharge Plan Disposition Patient Disposition: Home, Self-Care Discharge Order Discharge Orders: Discharge Order (Routine); Ordered 08/02/25 Ordered By: Jackie Devine Follow up Plan Follow up with: Jackie Devine DO [Staff Physician, [employer]] - 2 weeks Prescriptions/Medication Reconciliation: New acetaminophen 500 mg tablet 500 mg PO Q6H PRN (Reason: fever or pain) Qty: 30 3RF sennosides [Senna Lax] 8.6 mg Tablet 8.6 mg PO BIDP PRN (Reason: Constipation) Qty: 60 2RF ibuprofen 800 mg tablet 800 mg PO Q8H PRN (Reason: pain) Qty: 60 2RF oxycodone 5 mg tablet 5 mg PO Q8H PRN (Reason: pain) Qty: 20 0RF simethicone 125 mg tablet 125 mg PO DAILY PRN (Reason: abdominal distention) Qty: 60 2RF Continued Classic 28 mg iron- 800 mcg tablet 1 tab PO DAILY aspirin [Adult Low Dose Aspirin] 81 mg tablet,delayed release (DR/EC) 81 mg PO BID famotidine 20 mg Tablet 20 mg PO DAILY Problem Reconciliation Problems Reviewed?: Yes Patient Discharge Instructions ACTIVITY: Continue current activity DIET: regular diet Additional Instructions: Congratulations on the delivery of your sweet baby boy. It is my privilege to be your doctor and I am so thankful I could be a part of your special day. Discharge: 1. Take 800 mg Ibuprofen every 8 hours as needed for pain. You can also take 500-1000mg of Tylenol in between doses, every 6-8 hours. Use prescription pain medicine for pain you feel in between 8 hour interval. -No driving while taking narcotic pain medications. In order to drive you should be able to slam on the brakes without significant abdominal pain. 2. Wean from prescription pain medicine first. Do not drive while taking it. 3. Prescription pain medicine can make you constipated. Colace can be taken 1-2 times per day as you need. Make sure to drink at least 8 cups of water per day. 4. Iron supplements can make you constipated. Colace can be taken 1-2 times per day as you need. You can take iron tablets every other day if constipation is too bad. 5. Nothing in the vagina for 6 weeks - no intercourse, douching, tampons. No tub baths or swimming pools 6. Do not lift greater than 15 pounds for 6 weeks, this is the equivalent of 2 gallons of milk. 7. Reasons to return to L&D or call On-Call doctor - fever (greater than 100.4) - heavy vaginal bleeding (soaking through 1 pad in less than 2 hours or passing clots that are egg sized) - vaginal discharge (malodorous and/or purulent) - bleeding or discharge from her incision - severe headaches, leg tenderness/edema, or any other symptoms that warrant immediate medical attention. 8. depression/blues - Normal to feel anxious/overwhelmed for first 2 weeks - Talk to your doctor if: anxiety lasts over 2 weeks, trouble bonding with baby, withdrawing from other family members, thoughts of harming yourself or others Blood pressure and preeclampsia instructions -Please call if greater than 2 values are higher than: 150 systolic (the top number) or 100 diastolic (the bottom number). -Please go to the emergency room or labor and delivery triage if any value is higher than: 160 systolic (the top number) or 110 diastolic (the bottom number). -Please call if unrelenting headache (does not go away with rest or Tylenol or ibuprofen), changes in vision (spots, floaters, flashes of light), chest pain, shortness of breath, or right upper quadrant (liver) abdominal pain. Jackie Devine DO [facility] [phone] *Nothing in the Vagina for 6 weeks* *No strenuous activity* *No heavy lifting* *No tub baths until okay's by MD* Patient Instructions: Depression, Hemorrhage, DI for , DI for Pre-eclampsia, Catheter-Associated Urinary Tract Infection, [facility] Post Discharge Instructions Print Language: Algerian Providers Primary Care Provider: Leida Reagan Admit Provider: Jackie Devine Attending Provider: Jackie Devine
== END 2025-08-02 11:08 | disposition home or self-care (01) | DRG 787 ==
PROVIDERS: Admitting Provider Obstetrics & Gynecology; PCP Nurse Practitioner; Visit Provider Obstetrics & Gynecology
PROC: 10D00Z0 Extraction of Products of Conception, High, Open Approach (ICD-10-PCS; CPT 59514; principal; 2025-07-31 07:30)
DX: O34.211 Maternal care for low transverse scar from previous cesarean delivery (principal); D62 Acute posthemorrhagic anemia; O72.1 Other immediate postpartum hemorrhage; O99.12 Other diseases of the blood and blood-forming organs and certain disorders involving the immune mechanism complicating childbirth; Z3A.39 39 weeks gestation of pregnancy; Z37.0 Single live birth; O90.81 Anemia of the puerperium; O26.893 Other specified pregnancy related conditions, third trimester; D69.6 Thrombocytopenia, unspecified; O99.892 Other specified diseases and conditions complicating childbirth; N73.6 Female pelvic peritoneal adhesions (postinfective); O28.3 Abnormal ultrasonic finding on antenatal screening of mother; Z67.41 Type O blood, Rh negative; Z14.8 Genetic carrier of other disease; Z87.59 Personal history of other complications of pregnancy, childbirth and the puerperium; Z88.0 Allergy status to penicillin; Z88.8 Allergy status to other drugs, medicaments and biological substances; Z79.82 Long term (current) use of aspirin; Z79.899 Other long term (current) drug therapy; Z23 Encounter for immunization
CPT/HCPCS: 36415; 59025; 80048; 80053; 81001; 85025; 85461; 86592; 86850; J0665; J0736; J1756; J1885; J2371; J2405; J2590; J2790; J7120